=== PATIENT | female | born 1945 | race Caucasian/White ===

== ENCOUNTER → 2017-01-23 | Outpatient (CLI) | payer MEDICARE, BC | LOC: WI 13:37 | PROVIDERS: ATTEND Internal Medicine | DX: Z12.31 Encounter for screening mammogram for malignant neoplasm of breast (principal) | CPT/HCPCS: 77067; G0202 ==

== ENCOUNTER 2017-11-03 11:35 | Inpatient (IN) | payer MEDICARE, BC ==
--- NOTE | 2017-11-03 11:53 | ER Document Report ---
ED Medical Screen (RME) - General Chief Complaint: Breathing Difficulty Stated Complaint: CONGESTION Time Seen by Provider: 11/03/17 11:46 Mode of Arrival: Ambulatory Information source: Patient TRAVEL OUTSIDE OF THE [place] IN LAST 30 DAYS: No - HPI Onset: Other - 3 DAYS Onset/Duration: Gradual Quality of pain: Achy, Dull Severity: Mild Associated Symptoms: Chills, Cough (productive), Fever, Nausea, Sweating Exacerbated by: Denies Relieved by: Denies Similar symptoms previously: Yes - NOT RECENT Recently seen / treated by doctor: No - Related Data Smoking: Non-smoker Frequency of alcohol use: None Drug Abuse: None Allergies/Adverse Reactions: No Known Drug Allergies Allergy (Verified 11/03/17 11:42) Past Medical History - General Information source: Patient - Social History Cigarette use (# per day): No Chew tobacco use (# tins/day): No Frequency of alcohol use: None Drug Abuse: None Lives with: Family Family history: None - Past Medical History Cardiac Medical History: Reports: Hx Coronary Artery Disease, Hx Hypertension - ON MEDICATION Denies: Hx Heart Attack Pulmonary Medical History: Reports: Hx COPD Denies: Hx Asthma, Hx Bronchitis, Hx Pneumonia Neurological Medical History: Denies: Hx Cerebrovascular Accident, Hx Seizures Musculoskeltal Medical History: Reports Hx Arthritis - back,top right foot,neck occas Psychiatric Medical History: Reports: Hx Anxiety Past Surgical History: Reports: Hx Bowel Surgery, Hx Cholecystectomy. Denies: Hx Hysterectomy - Immunizations Hx Diphtheria, Pertussis, Tetanus Vaccination: No Review of Systems - Review of Systems Constitutional: See HPI EENT: No symptoms reported Cardiovascular: See HPI Respiratory: See HPI Gastrointestinal: See HPI Genitourinary: No symptoms reported Female Genitourinary: Post menopausal Musculoskeletal: No symptoms reported Skin: No symptoms reported Physical Exam - Vital signs Interpretation: Tachycardic. No: Hypotensive, Hypertensive, Tachypneic, Febrile - General General appearance: Appears well, Alert In distress: None - HEENT Head: Normocephalic Eyes: Normal Ears: Normal Nasal: Normal Mouth/Lips: Normal Mucous membranes: Dry Pharynx: Normal Neck: Normal, Supple - Respiratory Respiratory status: No respiratory distress Chest status: Nontender Breath sounds: Rales - FEW RML. No: Wheezing - Cardiovascular Rhythm: Regular, Tachycardia Heart sounds: Normal auscultation Murmur: No - Abdominal Inspection: Normal Distension: No distension - Extremities General upper extremity: Normal inspection General lower extremity: Normal inspection. No: Edema - Neurological Neuro grossly intact: Yes Cognition: Normal Orientation: AAOx4 - Psychological Associated symptoms: Normal affect, Normal mood - Skin Skin Temperature: Warm Skin Moisture: Dry Skin Color: Normal Skin Turgor: Loose
--- NOTE | 2017-11-03 11:54 | ER Document Report ---
ED Respiratory Problem - General Chief Complaint: Breathing Difficulty Stated Complaint: CONGESTION Time Seen by Provider: 11/03/17 11:46 Mode of Arrival: Ambulatory Information source: Patient Notes: 72-year-old frail, smoking, COPD, CAD, non CHF patient of Dr. Casillas has been having increased cough with green/yellow mucus production, chest squeezing and shortness of breath since Saturday. No fever. No vomiting or diarrhea. Did get Flu shot. Does not use oxygen at home. Pulse ox is 88% without oxygen in room. 90% with 4lpmNC. She states the last time she was like this she was admitted to the hospital. TRAVEL OUTSIDE OF THE [place] IN LAST 30 DAYS: No - Related Data Allergies/Adverse Reactions: No Known Drug Allergies Allergy (Verified 11/03/17 11:42) Past Medical History - General Information source: Patient - Social History Smoking Status: Current Every Day Smoker Cigarette use (# per day): No Chew tobacco use (# tins/day): No Frequency of alcohol use: None Drug Abuse: None Lives with: Family Family History: Reviewed & Not Pertinent Patient has suicidal ideation: No Patient has homicidal ideation: No - Past Medical History Cardiac Medical History: Reports: Hx Coronary Artery Disease, Hx Hypertension - ON MEDICATION Denies: Hx Heart Attack Pulmonary Medical History: Reports: Hx COPD Renal/ Medical History: Denies: Hx Peritoneal Dialysis Musculoskeltal Medical History: Reports Hx Arthritis - back,top right foot,neck occas Psychiatric Medical History: Reports: Hx Anxiety Past Surgical History: Reports: Hx Bowel Surgery, Hx Cholecystectomy. Denies: Hx Hysterectomy - Immunizations Hx Diphtheria, Pertussis, Tetanus Vaccination: No Hx Pneumococcal Vaccination: 09/30/14 Review of Systems - Review of Systems Constitutional: See HPI EENT: No symptoms reported Cardiovascular: See HPI, Chest pain Respiratory: See HPI, Cough, Short of breath, Sputum Gastrointestinal: No symptoms reported Genitourinary: No symptoms reported Female Genitourinary: No symptoms reported Musculoskeletal: No symptoms reported Skin: No symptoms reported Hematologic/Lymphatic: No symptoms reported Neurological/Psychological: No symptoms reported Physical Exam - Vital signs Vitals: Temp Pulse Resp BP Pulse Ox 98.9 F 119 H 16 116/64 85 L 11/03/17 11:41 11/03/17 11:41 11/03/17 11:41 11/03/17 11:41 11/03/17 11:41 Interpretation: Normal Notes: cachectic - General General appearance: Appears well, Alert Notes: cachetic - HEENT Head: Normocephalic, Atraumatic Eyes: Normal Conjunctiva: Normal Pupils: PERRL Mucous membranes: Normal Neck: Supple - Respiratory Respiratory status: No respiratory distress Chest status: Nontender Breath sounds: Productive cough, Rales - right base. No: Wheezing Chest palpation: Normal - Cardiovascular Rhythm: Tachycardia Heart sounds: Normal auscultation Murmur: No - Abdominal Inspection: Normal Distension: No distension Bowel sounds: Normal Tenderness: Nontender. No: Tender Organomegaly: No organomegaly - Back Back: Normal, Nontender - Extremities General upper extremity: Normal inspection, Nontender, Normal color, Normal ROM , Normal temperature. No: Edema General lower extremity: Normal inspection, Nontender, Normal color, Normal ROM , Normal temperature, Normal weight bearing. No: Edema, Tino's sign - Neurological Neuro grossly intact: Yes Cognition: Normal Orientation: AAOx4 Isabel Coma Scale Eye Opening: Spontaneous Sharon Coma Scale Verbal: Oriented Sharon Coma Scale Motor: Obeys Commands Isabel Coma Scale Total: 15 Speech: Normal Motor strength normal: LUE, RUE, LLE, RLE Sensory: Normal - Psychological Associated symptoms: Normal affect, Normal mood - Skin Skin Temperature: Warm Skin Moisture: Dry Skin Color: Normal Skin irregularity: negative: Rash Course - Re-evaluation Re-evalutation: 11/03/17 13:09 chest xray RLL pneumonia. Potassium is 3.1, sodium is 130 which she has had chronic hyponatremia in the past. See Dr. Camarena is admitting the patient [facility] for Dr. Weir. He wants me to give a azithromycin 500 mg IV. Originally he ordered Levaquin but she says that she may have a reaction to that. He also did not want the prednisone he originally ordered so I canceled that. The patient's pulse ox is maintaining 93% with oxygen 4 Lpm NC 11/03/17 13:55 - Vital Signs Vital signs: Temp Pulse Resp BP Pulse Ox 98.9 F 119 H 17 120/76 94 11/03/17 11:41 11/03/17 11:41 11/03/17 13:01 11/03/17 13:00 11/03/17 13:01 - Laboratory Result Diagrams: 11/03/17 12:18 11/03/17 12:18 Laboratory results interpreted by me: 11/03/17 11/03/17 11/03/17 12:18 12:18 12:18 WBC 18.1 H Hct 34.8 L Seg Neuts % (Manual) 88 H Band Neutrophils % 7 H Lymphocytes % (Manual) 4 L Monocytes % (Manual) 1 L Abs Neuts (Manual) 17.2 H VBG pH 7.49 H VBG HCO3 38.2 H Sodium 130.9 L Potassium 3.1 L Chloride 84 L Carbon Dioxide 36 H Glucose 114 H Direct Bilirubin 0.5 H AST 37 H Creatine Kinase 24 L Discharge - Discharge Clinical Impression: Hypoxia, Hypokalemia, Hyponatremia RLL pneumonia Qualifiers: Pneumonia type: due to unspecified organism Qualified Code(s): J18.1 - Lobar pneumonia, unspecified organism COPD (chronic obstructive pulmonary disease) Qualifiers: COPD type: COPD with acute lower respiratory infection Qualified Code(s): J44.0 - Chronic obstructive pulmonary disease with acute lower respiratory infection Condition: Stable Disposition: ADMITTED INPATIENT Admitting Provider: Carmella Unit Admitted: [facility]
[2017-11-03] MEDS ORDERED: CEFTRIAXONE 1 GM/D5W RTU 1 GM/50 ML RTUPB IV ONE (12:01)
[2017-11-03] MEDS ORDERED: IPRATROPIUM/ALBUTEROL 0.5-2.5 MG/3 ML AMPUL NEB ONE (12:01)
[2017-11-03] MEDS ORDERED: NORMAL SALINE 1000 ML 500 ML IV ONE (12:02)
[2017-11-03] MEDS ORDERED: CEFTRIAXONE INJ 1000 MG VIAL IV ONE (12:30)
[2017-11-03 12:36] LABS: VENOUS BLOOD BASE EXCESS 12.9 mmol/L; VENOUS BLOOD HCO3 38.2 mmol/L (20-32); VENOUS BLOOD PCO2 51.7 mmHg (35-63); VENOUS BLOOD PH 7.49 (7.30-7.42)
[2017-11-03 12:38] LABS: HEMATOCRIT 34.8 % (36.0-47.0); MEAN CORPUSCULAR HEMOGLOBIN 31.7 pg (27.0-33.4); MEAN CORPUSCULAR HGB CONC 34.4 g/dL (32.0-36.0); MEAN CORPUSCULAR VOLUME 92 fl (80-97); PLATELET COUNT 281 10^3/uL (150-450); RED BLOOD COUNT 3.77 10^6/uL (3.72-5.28); RED CELL DISTRIBUTION WIDTH 13.9 % (11.5-14.0); WHITE BLOOD COUNT 18.1 10^3/uL (4.0-10.5)
--- NOTE | 2017-11-03 12:47 | RADIOLOGY REPORT (SQ) ---
EXAM DESCRIPTION: CHEST SINGLE VIEW COMPLETED DATE/TIME: 11/03/2017 12:26 pm REASON FOR STUDY: COUGH, FEVER COMPARISON: Chest films 01/11/2016, 10/01/2015, 07/30/2015 EXAM PARAMETERS: NUMBER OF VIEWS: One view. TECHNIQUE: Single frontal radiographic view of the chest acquired. RADIATION DOSE: NA LIMITATIONS: None. FINDINGS: LUNGS AND PLEURA: Patchy airspace disease right lower lobe worrisome for pneumonia. Left lung clear. No pleural effusions or pneumothorax. MEDIASTINUM AND HILAR STRUCTURES: No masses. Contour normal. HEART AND VASCULAR STRUCTURES: Heart normal in size. Normal vasculature. BONES: No acute findings. HARDWARE: None in the chest. OTHER: No other significant finding. IMPRESSION: Right lower lobe airspace disease worrisome for pneumonia. No pleural effusion. TECHNICAL DOCUMENTATION: JOB ID: [id number] [employer]- All Rights Reserved
[2017-11-03 12:55] LABS: ALANINE AMINOTRANSFERASE 29 U/L (9-52); ALBUMIN 3.8 g/dL (3.5-5.0); ALKALINE PHOSPHATASE 87 U/L (38-126); ANION GAP 11 (5-19); ASPARTATE AMINO TRANSFERASE 37 U/L (14-36); BILIRUBIN,DIRECT 0.5 mg/dL (0.0-0.4); BILIRUBIN,TOTAL 0.6 mg/dL (0.2-1.3); BLOOD UREA NITROGEN 15 mg/dL (7-20); CALCIUM 9.9 mg/dL (8.4-10.2); CARBON DIOXIDE 36 mmol/L (22-30); CHLORIDE 84 mmol/L (98-107); CREATINE KINASE 24 U/L (30-135); GLUCOSE 114 mg/dL (75-110); POTASSIUM 3.1 mmol/L (3.6-5.0); SODIUM 130.9 mmol/L (137-145); TOTAL PROTEIN 6.8 g/dL (6.3-8.2)
[2017-11-03 12:57] LABS: ABSOLUTE LYMPHOCYTES# (MANUAL) 0.7 10^3/uL (0.5-4.7); ABSOLUTE MONOCYTES # (MANUAL) 0.2 10^3/uL (0.1-1.4); ABSOLUTE NEUTROPHILS# (MANUAL) 17.2 10^3/uL (1.7-8.2); BAND NEUTROPHILS % (MANUAL) 7 % (3-5); BASOPHILS % (MANUAL) 0 % (0-2); EOSINOPHILS % (MANUAL) 0 % (0-6); LYMPHOCYTES % (MANUAL) 4 % (13-45); MONOCYTES % (MANUAL) 1 % (3-13); SEGMENTED NEUTROPHILS % (MAN) 88 % (42-78); TOTAL CELLS COUNTED 100
[2017-11-03 12:59] LABS: HYPOCHROMASIA SLIGHT; PLATELET COMMENT ADEQUATE; TOXIC GRANULATION SLIGHT
[2017-11-03] MEDS ORDERED: PREDNISONE 20 MG TABLET PO ONE (13:02)
[2017-11-03] MEDS ORDERED: POTASSIUM CHLORIDE 20 MEQ/15 ML UDCUP PO ONE (13:04)
[2017-11-03 13:07] LABS: CREATINE KINASE MB < 0.22 ng/mL (<4.55); TROPONIN I < 0.012 ng/mL
[2017-11-03] MEDS ORDERED: NORMAL SALINE 1000 ML 1,000 ML IV ONE (13:07)
[2017-11-03] MEDS ORDERED: AZITHROMYCIN INJ 500 MG VIAL IV ONE (13:08)
[2017-11-03] MEDS ORDERED: NORMAL SALINE 1000 ML 1,000 ML IV PRN (13:14)
[2017-11-03] MEDS ORDERED: ACETAMINOPHEN 325 MG TABLET PO PRN (13:14)
[2017-11-03] MEDS ORDERED: IPRATROPIUM/ALBUTEROL 0.5-2.5 MG/3 ML AMPUL NEB PRN (13:14)
[2017-11-03] MEDS ORDERED: GUAIFENESIN SYRP 200 MG/10 ML UDC PO PRN (13:14)
[2017-11-03] MEDS ORDERED: CYCLOBENZAPRINE HCL 10 MG TABLET PO PRN (13:16)
[2017-11-03] MEDS ORDERED: LORAZEPAM 1 MG TABLET PO PRN ×2 (13:16→19:00)
[2017-11-03 13:28] LABS: A TYPE INFLUENZA AG NEGATIVE (NEGATIVE); B INFLUENZA AG NEGATIVE (NEGATIVE)
[2017-11-03] MEDS ORDERED: HYDROCODONE/ACETAMINOPHEN 10-325 MG TABLET PO SCH (13:30)
[2017-11-03 13:59] LABS: APPEARANCE,URINE CLOUDY; BILIRUBIN,URINE NEGATIVE (NEGATIVE); COLOR,URINE DARK YELLOW; GLUCOSE, URINE NEGATIVE (NEGATIVE); KETONES,URINE NEGATIVE (NEGATIVE); LEUKOCYTE ESTERASE,URINE TRACE (NEGATIVE); NITRITE,URINE POSITIVE (NEGATIVE); PROTEIN,URINE 30 mg/dL (NEGATIVE); URINE SPECIFIC GRAVITY 1.021
[2017-11-03] MEDS ORDERED: LEVOFLOXACIN 750 MG/D5W RTU 750 MG/150 ML RTUPB IV SCH (14:00)
--- NOTE | 2017-11-03 14:58 | HISTORY AND PHYSICAL E ---
History and Physical NAME: MAYURI BAILEY : 1945 AGE: 72Y ADMITTED: 11/03/2017 ROOM: ED03 CHIEF COMPLAINT: Short of breath. HISTORY OF PRESENT ILLNESS: This is a 72-year-old female patient of Dr. Ryan with a history of chronic smoking, COPD, coronary artery disease, came to the emergency department complaining of a cough with green-yellow mucus production since last Saturday with shortness of breath since last Saturday. Patient denied any fevers. No vomiting. No diarrhea. Patient did not get a flu shot this year. Patient usually does not require oxygen, but pulse ox is 88% which goes up on 2 L nasal cannula to 90% plus. Patient's chest x-ray is consistent with pneumonia with elevated white count. When I see the patient in the ER, patient is feeling a little bit better but still having a little shortness of breath. Patient denied any chest pain to me. Patient denied any nausea. No vomiting. Patient is at this point given Rocephin and Zithromax. Patient claims that she has some allergy to levofloxacin, not sure, but was given p.o. medication by Dr. Ryan in the past and unable to tolerate that, so we tried the patient on these other 2 medications. Patient's family is at the bedside. PAST MEDICAL HISTORY: History of COPD with chronic smoking, history of hypertension, history of chronic pain with chronic pain medications. Currently sees *------* pain management. History of hyperlipidemia. History of anxiety disorder. Patient also has a history of cardiac arrhythmia but no cardiac stents and no heart failure. PAST SURGICAL HISTORY: Bowel surgery, cholecystectomy, and hysterectomy. REVIEW OF SYSTEMS: As above. All other 14 systems negative. PHYSICAL EXAMINATION: VITAL SIGNS: Blood pressure was 116/64. Temperature is 98.9. Pulse was 60. O2 sat is 85% on room air, currently 95% on 2 L nasal cannula. GENERAL: Patient is alert, awake, oriented, very thin. No acute distress. HEAD AND NECK: Normocephalic. PERRL. LUNGS: No wheezing. No rales. No rhonchi. HEART: S1 and S2 are present. ABDOMEN: Soft. Bowel sounds present. EXTREMITIES: No edema. NEURO: No focal weakness is seen. DIAGNOSTIC TEST RESULTS: Patient's chest x-ray is right lower lobe air space disease. WBC is 18.1. Hemoglobin is 12.0. Platelets are 281. Segmented is 88 and bands are 7. The pH was 7.49, pCO2 was 51. Patient's chemistry: Sodium is 130. Potassium is 3.1. BUN is 15. Creatinine 0.58. Lactic acid is 2.1. Cardiac enzymes x1 are negative. ASSESSMENT AND PLAN: 1. RIGHT LOWER LOBE PNEUMONIA. 2. SHORTNESS OF BREATH DUE TO THE ABOVE CONDITION. 3. COPD WITH ACUTE EXACERBATION. 4. HYPERTENSION. 5. CHRONIC HYPONATREMIA. 6. HYPERLIPIDEMIA. 7. CHRONIC SMOKER. 8. CORONARY ARTERY DISEASE. The plan is to admit the patient in the IMCU, start the patient on IV antibiotics, respiratory treatments. Will get urine sodium. *------* most likely with this chronic hyponatremia. Possible underlying SIADH. Will continue to monitor, give her some normal saline, and continue to monitor the patient. Discussed with the patient and family about all the test reports in the emergency department. More than 35 minutes spent examining the patient. DICTATING PHYSICIAN: LIDIA OROZCO M.D. [id number] PHY#: [id number] ID: [id number] JOB#: [id number] ACCT: [id number] cc:VEDA RYAN M.D. >
[2017-11-03] MEDS: HYDROCODONE/ACETAMINOPHEN 10-325 MG TABLET PO PRN ×2 (15:06→21:48)
--- NOTE | 2017-11-03 16:11 | EKG REPORT ---
SEVERITY:- ABNORMAL ECG - SINUS TACHYCARDIA MULTIPLE ATRIAL PREMATURE COMPLEXES BORDERLINE RIGHT AXIS DEVIATION BORDERLINE T ABNORMALITIES, INFERIOR-LATERAL LEADS : Confirmed by: Harvey Martinez MD 03-Nov-2017 16:10:14
[2017-11-03 17:27] LABS: OSMOLALITY,URINE 627 mOsm/kg (300-900)
[2017-11-03 17:50] LABS: URINE SODIUM 48 mmol/L (30-90)
[2017-11-03] MEDS ORDERED: (PENDING PHARMACY ID) (Potassium Chloride [Potassium Chloride] 10 MEQ) PO SCH (18:00)
[2017-11-03] MEDS: LANSOPRAZOLE 15 MG TAB.RAP.DR PO SCH (18:03)
[2017-11-03] MEDS: POTASSIUM CHLORIDE 10 MEQ TABLET.SA PO SCH (18:05)
[2017-11-03 19:01] LABS: CREATINE KINASE MB < 0.22 ng/mL (<4.55); TROPONIN I < 0.012 ng/mL
[2017-11-03] MEDS: GUAIFENESIN 600 MG TABLET.SA PO SCH (21:48)
[2017-11-03] MEDS: SIMVASTATIN 40 MG TABLET PO SCH (21:49)
[2017-11-03] MEDS: ASPIRIN 81 MG TABLET, ENT COATED PO SCH (21:49)
[2017-11-04 01:02] LABS: CREATINE KINASE MB < 0.22 ng/mL (<4.55); TROPONIN I < 0.012 ng/mL
[2017-11-04] MEDS: HYDROCODONE/ACETAMINOPHEN 10-325 MG TABLET PO PRN ×4 (04:14→23:01)
[2017-11-04 06:41] LABS: ABSOLUTE BASOPHILS # (AUTO) 0.1 10^3/uL (0.0-0.2); ABSOLUTE LYMPHOCYTES (AUTO) 0.9 10^3/uL (0.5-4.7); ABSOLUTE MONOCYTES (AUTO) 0.8 10^3/uL (0.1-1.4); ABSOLUTE NEUT (AUTO) 11.8 10^3/uL (1.7-8.2); BASOPHILS % (AUTO) 0.4 % (0-2); EOSINOPHILS % (AUTO) 0.1 % (0-6); HEMATOCRIT 30.8 % (36.0-47.0); HEMOGLOBIN 10.6 g/dL (12.0-15.5); LYMPHOCYTES % (AUTO) 6.4 % (13-45); MEAN CORPUSCULAR HEMOGLOBIN 31.6 pg (27.0-33.4); MEAN CORPUSCULAR HGB CONC 34.5 g/dL (32.0-36.0); MEAN CORPUSCULAR VOLUME 92 fl (80-97); MONOCYTES % (AUTO) 5.8 % (3-13); PLATELET COUNT 263 10^3/uL (150-450); RED BLOOD COUNT 3.36 10^6/uL (3.72-5.28); SEGMENTED NEUTROPHILS % (AUTO) 87.3 % (42-78); TOTAL CELLS COUNTED % (AUTO) 100 %; WHITE BLOOD COUNT 13.5 10^3/uL (4.0-10.5)
[2017-11-04 06:49] LABS: ALANINE AMINOTRANSFERASE 28 U/L (9-52); ALBUMIN 2.8 g/dL (3.5-5.0); ALKALINE PHOSPHATASE 71 U/L (38-126); ANION GAP 8 (5-19); ASPARTATE AMINO TRANSFERASE 22 U/L (14-36); BILIRUBIN,DIRECT 0.4 mg/dL (0.0-0.4); BILIRUBIN,TOTAL 0.4 mg/dL (0.2-1.3); BLOOD UREA NITROGEN 16 mg/dL (7-20); CALCIUM 9.3 mg/dL (8.4-10.2); CARBON DIOXIDE 34 mmol/L (22-30); CHLORIDE 87 mmol/L (98-107); GLUCOSE 97 mg/dL (75-110); POTASSIUM 3.1 mmol/L (3.6-5.0); SODIUM 128.6 mmol/L (137-145); TOTAL PROTEIN 5.2 g/dL (6.3-8.2)
[2017-11-04 06:51] LABS: CREATINE KINASE < 20 U/L (30-135)
[2017-11-04 07:02] LABS: CREATINE KINASE MB < 0.22 ng/mL (<4.55); TROPONIN I < 0.012 ng/mL
[2017-11-04] MEDS ORDERED: METOPROLOL SUCCINATE 50 MG TAB.SR.24H PO SCH (10:00)
[2017-11-04] MEDS ORDERED: (PENDING PHARMACY ID) (Metoprolol Succinate [Metoprolol Succinate] 100 MG) PO SCH (10:00)
[2017-11-04] MEDS ORDERED: CEFTRIAXONE 1 GM/D5W RTU 1 GM/50 ML RTUPB IV SCH (10:00)
[2017-11-04] MEDS ORDERED: (PENDING PHARMACY ID) (Valsartan [Valsartan] 320 MG) PO SCH (10:00)
[2017-11-04] MEDS: LANSOPRAZOLE 15 MG TAB.RAP.DR PO SCH ×2 (10:01→17:57)
[2017-11-04] MEDS: GUAIFENESIN 600 MG TABLET.SA PO SCH ×2 (10:01→21:28)
[2017-11-04] MEDS: POTASSIUM CHLORIDE 10 MEQ TABLET.SA PO SCH ×2 (10:02→17:57)
[2017-11-04] MEDS: VALSARTAN 160 MG TABLET PO SCH (10:03)
[2017-11-04] MEDS: ISOSORBIDE MONONITRATE 30 MG TAB.ER.24H PO SCH (10:04)
[2017-11-04] MEDS: AMLODIPINE BESYLATE 10 MG TABLET PO SCH (10:04)
[2017-11-04] MEDS: ENOXAPARIN SODIUM INJ 40 MG/0.4 ML DISP.SYRIN SUBCUT SCH (10:05)
[2017-11-04] MEDS: AZITHROMYCIN 500 MG in DEXTROSE 5%-WATER 250 ML IV SCH (10:07)
[2017-11-04] MEDS: TIOTROPIUM BROMIDE DPI 5 CAP/KIT (18 MCG/CAP) IH SCH (10:07)
[2017-11-04] MEDS ORDERED: CYCLOBENZAPRINE HCL 10 MG TABLET PO PRN (10:55)
[2017-11-04] MEDS: CEFTRIAXONE SODIUM 1,000 MG in NORMAL SALINE 50 ML IV SCH (13:52)
[2017-11-04] MEDS: METOPROLOL SUCCINATE 50 MG TAB.SR.24H PO SCH (17:58)
[2017-11-04] MEDS: SIMVASTATIN 40 MG TABLET PO SCH (21:28)
[2017-11-04] MEDS: ASPIRIN 81 MG TABLET, ENT COATED PO SCH (21:28)
--- NOTE | 2017-11-04 21:33 | RADIOLOGY REPORT (SQ) ---
EXAM DESCRIPTION: CT CHEST WITHOUT COMPLETED DATE/TIME: 11/04/2017 9:05 pm REASON FOR STUDY: pneumonia COMPARISON: 2013. Radiographs from yesterday. TECHNIQUE: CT scan performed of the chest without intravenous contrast. Images reviewed with lung, soft tissue and bone windows. Reconstructed coronal and sagittal MPR images reviewed. All images st ored on PACS. All CT scanners at this facility use dose modulation, iterative reconstruction, and/or weight based d osing when appropriate to reduce radiation dose to as low as reasonably achievable (ALARA). [facility]: Dose Right [facility]: CareDose [facility]: Dose Right [facility]: Teradose 4D [facility]: Smart Power Fingerprinting RADIATION DOSE: CT Rad equipment meets quality standard of care and radiation dose reduction techniq ues were employed. CTDIvol: 4.8 mGy. DLP: 167 mGy-cm. mGy. LIMITATIONS: No technical limitations. FINDINGS: LUNGS AND PLEURA: Bilateral lower lobe areas of consolidation with associated small effusi ons. Upper lobes are clear allowing for mild emphysema. Mild areas of scarring. HILAR AND MEDIASTINAL STRUCTURES: Shotty mediastinal nodes. No bulky adenopathy. Mild debris in the esophagus. No significant hiatal hernia. HEART AND VASCULAR STRUCTURES: Dense coronary calcification. No pericardial effusion. Atherosclerot ic plaque, particularly transverse and descending. Ectatic ascending aorta measuring close to 3.8 cm . No focal aneurysm. UPPER ABDOMEN: No significant findings. Limited exam. THYROID AND OTHER SOFT TISSUES: No masses. No adenopathy. BONES: Osteopenic. HARDWARE: None in the chest. OTHER: No other significant findings. IMPRESSION: 1. Bilateral presumed lower lobe pneumonia with parapneumonic effusions. Superimposed o n COPD. TECHNICAL DOCUMENTATION: JOB ID: [id number] Quality ID # [id number]: Final reports with documentation of one or more dose reduction techniques (e.g., Au tomated exposure control, adjustment of the mA and/or kV according to patient size, use of iterative reconstruction technique) 2010 [employer]- All Rights Reserved
--- NOTE | 2017-11-04 22:17 | PDOC PROGRESS REPORT ---
Subjective Progress Note for:: 11/04/17 Subjective:: Patient is a recalcitrant smoker, was admitted yesterday with pneumonia, she continued to smoke despite severe COPD, CT chest was done today, confirm bilateral pneumonia with emphysema associated parapneumonic effusion Reason For Visit: PNEUMONIA Physical Exam Vital Signs: Temp Pulse Resp BP Pulse Ox 98.8 F 73 18 103/58 L 98 11/04/17 20:31 11/04/17 20:31 11/04/17 20:31 11/04/17 20:31 11/04/17 20:31 Intake & Output 11/03/17 11/04/17 11/05/17 06:59 06:59 06:59 Intake Total 200 Balance 200 Weight 43.6 kg General appearance: PRESENT: mild distress Eye exam: PRESENT: PERRLA Respiratory exam: PRESENT: decreased breath sounds, wheezes Cardiovascular exam: PRESENT: +S1, +S2 GI/Abdominal exam: PRESENT: soft Neurological exam: PRESENT: alert Results Laboratory Results: 11/04/17 06:30 11/04/17 06:30 11/04/17 11/04/17 06:30 06:30 WBC 13.5 H RBC 3.36 L Hgb 10.6 L Hct 30.8 L MCV 92 MCH 31.6 MCHC 34.5 RDW 14.0 Plt Count 263 Seg Neutrophils % 87.3 H Lymphocytes % 6.4 L Monocytes % 5.8 Eosinophils % 0.1 Basophils % 0.4 Absolute Neutrophils 11.8 H Absolute Lymphocytes 0.9 Absolute Monocytes 0.8 Absolute Eosinophils 0.0 Absolute Basophils 0.1 Sodium 128.6 L Potassium 3.1 L Chloride 87 L Carbon Dioxide 34 H Anion Gap 8 BUN 16 Creatinine 0.54 Est GFR ( Amer) > 60 Est GFR (Non-Af Amer) > 60 Glucose 97 Calcium 9.3 Total Bilirubin 0.4 AST 22 ALT 28 Alkaline Phosphatase 71 Total Protein 5.2 L Albumin 2.8 L 11/03/17 11/03/17 11/04/17 18:10 18:10 00:10 Creatine Kinase < 20 L < 20 L CK-MB (CK-2) < 0.22 Troponin I < 0.012 11/04/17 11/04/17 11/04/17 00:10 06:30 06:30 Creatine Kinase < 20 L CK-MB (CK-2) < 0.22 < 0.22 Troponin I < 0.012 < 0.012 Impressions: Chest X-Ray 11/03/17 11:53 IMPRESSION: Right lower lobe airspace disease worrisome for pneumonia. No pleural effusion. Chest CT 11/04/17 00:00 IMPRESSION: 1. Bilateral presumed lower lobe pneumonia with parapneumonic effusions. Superimposed on COPD. Assessment & Plan - Diagnosis (1) Bilateral pneumonia Qualifiers: Pneumonia type: due to unspecified organism Lung location: lower lobe of lung Qualified Code(s): J18.9 - Pneumonia, unspecified organism Is this a current diagnosis for this admission?: Yes Plan: Continue IV antibiotic, azithromycin and ceftriaxone (2) SIADH (syndrome of inappropriate ADH production) Is this a current diagnosis for this admission?: Yes Plan: SIADH most likely related to pneumonia (3) Hypokalemia Is this a current diagnosis for this admission?: Yes Plan: Replace potassium (4) Acute hypoxemic respiratory failure Is this a current diagnosis for this admission?: Yes Plan: This is secondary to pneumonia and COPD continue oxygen through nasal cannula
[2017-11-04 22:25] LABS: ARTERIAL BLOOD BASE EXCESS 7.8 mmol/L; ARTERIAL BLOOD H2CO3 1.52 mmol/L (1.05-1.35); ARTERIAL BLOOD HCO3 33.1 mmol/L (20-26); ARTERIAL BLOOD O2 SATURATION 77.2 % (94-98); ARTERIAL BLOOD PCO2 50.5 mmHg (35-45); ARTERIAL BLOOD PH 7.44 (7.35-7.45); ARTERIAL BLOOD TOTAL CO2 34.7 mmol/L (21-25)
[2017-11-04 22:26] LABS: ARTERIAL BLOOD FIO2 5L
[2017-11-04] MEDS: POTASSI CL 40 MEQ/NS 1L 1,000 ML IV PRN (23:01)
[2017-11-05] MEDS: LANSOPRAZOLE 15 MG TAB.RAP.DR PO SCH ×2 (05:00→17:20)
[2017-11-05] MEDS: HYDROCODONE/ACETAMINOPHEN 10-325 MG TABLET PO PRN ×4 (05:00→23:34)
[2017-11-05 05:11] LABS: ABSOLUTE LYMPHOCYTES (AUTO) 1.8 10^3/uL (0.5-4.7); ABSOLUTE MONOCYTES (AUTO) 0.6 10^3/uL (0.1-1.4); ABSOLUTE NEUT (AUTO) 7.7 10^3/uL (1.7-8.2); BASOPHILS % (AUTO) 0.3 % (0-2); EOSINOPHILS % (AUTO) 0.4 % (0-6); HEMATOCRIT 28.5 % (36.0-47.0); HEMOGLOBIN 9.9 g/dL (12.0-15.5); LYMPHOCYTES % (AUTO) 17.4 % (13-45); MEAN CORPUSCULAR HEMOGLOBIN 31.7 pg (27.0-33.4); MEAN CORPUSCULAR HGB CONC 34.5 g/dL (32.0-36.0); MEAN CORPUSCULAR VOLUME 92 fl (80-97); MONOCYTES % (AUTO) 6.2 % (3-13); PLATELET COUNT 303 10^3/uL (150-450); RED BLOOD COUNT 3.11 10^6/uL (3.72-5.28); RED CELL DISTRIBUTION WIDTH 14.2 % (11.5-14.0); SEGMENTED NEUTROPHILS % (AUTO) 75.7 % (42-78); TOTAL CELLS COUNTED % (AUTO) 100 %; WHITE BLOOD COUNT 10.1 10^3/uL (4.0-10.5)
[2017-11-05 05:40] LABS: ALANINE AMINOTRANSFERASE 27 U/L (9-52); ALBUMIN 2.6 g/dL (3.5-5.0); ALKALINE PHOSPHATASE 69 U/L (38-126); ASPARTATE AMINO TRANSFERASE 23 U/L (14-36); BILIRUBIN,DIRECT 0.2 mg/dL (0.0-0.4); BILIRUBIN,TOTAL 0.2 mg/dL (0.2-1.3); BLOOD UREA NITROGEN 14 mg/dL (7-20); CALCIUM 9.1 mg/dL (8.4-10.2); GLUCOSE 94 mg/dL (75-110); TOTAL PROTEIN 4.9 g/dL (6.3-8.2)
[2017-11-05 05:58] LABS: ANION GAP 4 (5-19); CARBON DIOXIDE 34 mmol/L (22-30); CHLORIDE 92 mmol/L (98-107); POTASSIUM 3.5 mmol/L (3.6-5.0)
[2017-11-05 05:59] LABS: SODIUM 129.8 mmol/L (137-145)
[2017-11-05] MEDS: CEFTRIAXONE SODIUM 1,000 MG in NORMAL SALINE 50 ML IV SCH (09:38)
[2017-11-05] MEDS: AMLODIPINE BESYLATE 10 MG TABLET PO SCH (09:39)
[2017-11-05] MEDS: POTASSIUM CHLORIDE 10 MEQ TABLET.SA PO SCH ×2 (09:39→17:21)
[2017-11-05] MEDS: GUAIFENESIN 600 MG TABLET.SA PO SCH ×2 (09:39→21:46)
[2017-11-05] MEDS: VALSARTAN 160 MG TABLET PO SCH (09:39)
[2017-11-05] MEDS: ISOSORBIDE MONONITRATE 30 MG TAB.ER.24H PO SCH (09:40)
[2017-11-05] MEDS: ENOXAPARIN SODIUM INJ 40 MG/0.4 ML DISP.SYRIN SUBCUT SCH (09:42)
[2017-11-05] MEDS: AZITHROMYCIN 500 MG in DEXTROSE 5%-WATER 250 ML IV SCH (10:27)
[2017-11-05] MEDS: TIOTROPIUM BROMIDE DPI 5 CAP/KIT (18 MCG/CAP) IH SCH (11:39)
[2017-11-05] MEDS: METOPROLOL SUCCINATE 50 MG TAB.SR.24H PO SCH (17:20)
--- NOTE | 2017-11-05 20:54 | PDOC PROGRESS REPORT ---
Subjective Progress Note for:: 11/05/17 Subjective:: Patient was admitted for the management of pneumonia, she is alert oriented Reason For Visit: PNEUMONIA Physical Exam Vital Signs: Temp Pulse Resp BP Pulse Ox 97.8 F 62 20 103/64 95 11/05/17 16:28 11/05/17 19:00 11/05/17 16:28 11/05/17 16:28 11/05/17 16:28 Intake & Output 11/04/17 11/05/17 11/06/17 06:59 06:59 06:59 Intake Total 1337 2068 Output Total 600 Balance 1337 1468 Weight 43.6 kg 48 kg General appearance: PRESENT: no acute distress Eye exam: PRESENT: PERRLA Respiratory exam: PRESENT: clear to auscultation eze Cardiovascular exam: PRESENT: +S1, +S2 Neurological exam: PRESENT: alert Results Laboratory Results: 11/05/17 04:46 11/05/17 04:46 11/04/17 11/05/17 11/05/17 19:45 04:46 04:46 WBC 10.1 RBC 3.11 L Hgb 9.9 L Hct 28.5 L MCV 92 MCH 31.7 MCHC 34.5 RDW 14.2 H Plt Count 303 Seg Neutrophils % 75.7 Lymphocytes % 17.4 Monocytes % 6.2 Eosinophils % 0.4 Basophils % 0.3 Absolute Neutrophils 7.7 Absolute Lymphocytes 1.8 Absolute Monocytes 0.6 Absolute Eosinophils 0.0 Absolute Basophils 0.0 Carbonic Acid 1.52 H HCO3/H2CO3 Ratio 21:1 ABG pH 7.44 ABG pCO2 50.5 H ABG pO2 41.0 L ABG HCO3 33.1 H ABG O2 Saturation 77.2 L ABG Base Excess 7.8 FiO2 5L Sodium 129.8 L Potassium 3.5 L Chloride 92 L Carbon Dioxide 34 H Anion Gap 4 L BUN 14 Creatinine 0.53 Est GFR ( Amer) > 60 Est GFR (Non-Af Amer) > 60 Glucose 94 Calcium 9.1 Total Bilirubin 0.2 AST 23 ALT 27 Alkaline Phosphatase 69 Total Protein 4.9 L Albumin 2.6 L 11/03/17 11/03/17 11/04/17 18:10 18:10 00:10 Creatine Kinase < 20 L < 20 L CK-MB (CK-2) < 0.22 Troponin I < 0.012 11/04/17 11/04/17 11/04/17 00:10 06:30 06:30 Creatine Kinase < 20 L CK-MB (CK-2) < 0.22 < 0.22 Troponin I < 0.012 < 0.012 Impressions: Chest X-Ray 11/03/17 11:53 IMPRESSION: Right lower lobe airspace disease worrisome for pneumonia. No pleural effusion. Chest CT 11/04/17 00:00 IMPRESSION: 1. Bilateral presumed lower lobe pneumonia with parapneumonic effusions. Superimposed on COPD. Assessment & Plan - Diagnosis (1) Bilateral pneumonia Qualifiers: Pneumonia type: due to unspecified organism Lung location: lower lobe of lung Qualified Code(s): J18.9 - Pneumonia, unspecified organism Is this a current diagnosis for this admission?: Yes (2) SIADH (syndrome of inappropriate ADH production) Is this a current diagnosis for this admission?: Yes (3) Hypokalemia Is this a current diagnosis for this admission?: Yes (4) Acute hypoxemic respiratory failure Is this a current diagnosis for this admission?: Yes
[2017-11-05] MEDS: ASPIRIN 81 MG TABLET, ENT COATED PO SCH (21:46)
[2017-11-05] MEDS: SIMVASTATIN 40 MG TABLET PO SCH (21:46)
[2017-11-05] MEDS: POTASSI CL 40 MEQ/NS 1L 1,000 ML IV PRN (23:34)
[2017-11-06 00:36] LABS: UR PRO/CREAT RATIO RESULT 0.7 mg/mg (0.0-0.2); URINE CREATININE 20.8 mg/dL (15-278); URINE PROTEIN 13.6 mg/dL (<12)
[2017-11-06] MEDS: HYDROCODONE/ACETAMINOPHEN 10-325 MG TABLET PO PRN ×2 (05:37→11:22)
[2017-11-06] MEDS: LANSOPRAZOLE 15 MG TAB.RAP.DR PO SCH ×2 (05:37→16:11)
[2017-11-06 07:02] LABS: HEMATOCRIT 31.8 % (36.0-47.0); HEMOGLOBIN 10.8 g/dL (12.0-15.5); MEAN CORPUSCULAR HEMOGLOBIN 31.2 pg (27.0-33.4); MEAN CORPUSCULAR VOLUME 92 fl (80-97); PLATELET COUNT 385 10^3/uL (150-450); RED BLOOD COUNT 3.46 10^6/uL (3.72-5.28); RED CELL DISTRIBUTION WIDTH 14.6 % (11.5-14.0); WHITE BLOOD COUNT 6.7 10^3/uL (4.0-10.5)
[2017-11-06 07:07] LABS: ALANINE AMINOTRANSFERASE 28 U/L (9-52); ALKALINE PHOSPHATASE 78 U/L (38-126); ANION GAP 8 (5-19); ASPARTATE AMINO TRANSFERASE 34 U/L (14-36); BILIRUBIN,DIRECT 0.1 mg/dL (0.0-0.4); BILIRUBIN,TOTAL 0.1 mg/dL (0.2-1.3); BLOOD UREA NITROGEN 9 mg/dL (7-20); CALCIUM 9.6 mg/dL (8.4-10.2); CARBON DIOXIDE 31 mmol/L (22-30); CHLORIDE 96 mmol/L (98-107); GLUCOSE 85 mg/dL (75-110); POTASSIUM 4.3 mmol/L (3.6-5.0); SODIUM 135.4 mmol/L (137-145); TOTAL PROTEIN 5.4 g/dL (6.3-8.2)
[2017-11-06 07:53] LABS: ABSOLUTE LYMPHOCYTES# (MANUAL) 2.1 10^3/uL (0.5-4.7); ABSOLUTE MONOCYTES # (MANUAL) 0.3 10^3/uL (0.1-1.4); ABSOLUTE NEUTROPHILS# (MANUAL) 4.4 10^3/uL (1.7-8.2); BAND NEUTROPHILS % (MANUAL) 1 % (3-5); BASOPHILS % (MANUAL) 0 % (0-2); EOSINOPHILS % (MANUAL) 0 % (0-6); LYMPHOCYTES % (MANUAL) 30 % (13-45); METAMYELOCYTES % (MANUAL) 1 % (0); MONOCYTES % (MANUAL) 4 % (3-13); SEGMENTED NEUTROPHILS % (MAN) 63 % (42-78); TOTAL CELLS COUNTED 100; TOXIC GRANULATION 2+
[2017-11-06 07:54] LABS: HYPOCHROMASIA SLIGHT; PLATELET CLUMPS PRESENT; POLYCHROMASIA SLIGHT
[2017-11-06] MEDS: CEFTRIAXONE SODIUM 1,000 MG in NORMAL SALINE 50 ML IV SCH (09:57)
[2017-11-06] MEDS: VALSARTAN 160 MG TABLET PO SCH (09:59)
[2017-11-06] MEDS: POTASSIUM CHLORIDE 10 MEQ TABLET.SA PO SCH (09:59)
[2017-11-06] MEDS: TIOTROPIUM BROMIDE DPI 5 CAP/KIT (18 MCG/CAP) IH SCH (10:00)
[2017-11-06] MEDS: AMLODIPINE BESYLATE 10 MG TABLET PO SCH (10:00)
[2017-11-06] MEDS: GUAIFENESIN 600 MG TABLET.SA PO SCH (10:00)
[2017-11-06] MEDS: ISOSORBIDE MONONITRATE 30 MG TAB.ER.24H PO SCH (10:00)
[2017-11-06] MEDS: ENOXAPARIN SODIUM INJ 40 MG/0.4 ML DISP.SYRIN SUBCUT SCH (10:02)
[2017-11-06] MEDS: AZITHROMYCIN 500 MG in DEXTROSE 5%-WATER 250 ML IV SCH (11:05)
--- NOTE | 2017-11-06 15:49 | PDOC DISCHARGE SUMMARY ---
General - Admit/Disc Date/PCP Admission Date/Primary Care Provider: 11/03/17 13:13 VEDA RYAN MD Discharge Date: 11/06/17 - Discharge Diagnosis (1) Bilateral pneumonia Is this a current diagnosis for this admission?: Yes (2) SIADH (syndrome of inappropriate ADH production) Is this a current diagnosis for this admission?: Yes (3) Hypokalemia Is this a current diagnosis for this admission?: Yes (4) Acute hypoxemic respiratory failure Is this a current diagnosis for this admission?: Yes - Additional Information Resuscitation Status: Full Code Prescriptions: RX: Azithromycin [Zithromax 250 mg Tablet] 500 mg PO DAILY #14 tablet Home Medications: RX: Amlodipine Besylate [Norvasc 10 mg Tablet] 10 mg PO DAILY 11/04/17 RX: Hydrochlorothiazide [Hydrodiuril 12.5 mg Capsule] 12.5 mg PO DAILY 11/04/17 RX: Hydrocodone/Acetaminophen [Hydrocodone-Acetamin 10-325 mg] 1 tab PO Q6HP PRN 11/04/17 RX: Isosorbide Mononitrate [Isosorbide Mononitrate ER] 30 mg PO DAILY 11/04/17 RX: Metoprolol Succinate [Toprol XL 100 mg Tablet] 100 mg PO QPM 11/04/17 RX: Potassium Chloride [Klor-Con 10 Meq Tablet.sa] 10 meq PO DAILY 11/04/17 RX: Simvastatin [Zocor 40 mg Tablet] 40 mg PO QHS 11/04/17 RX: Valsartan [Diovan] 320 mg PO DAILY 11/04/17 RX: Azithromycin [Zithromax 250 mg Tablet] 500 mg PO DAILY #14 tablet 11/06/17 History of Present Illness History of Present Illness: MAYURI BAILEY is a 72 year old female, she has a history of chronic obstructive pulmonary disease, she could emergency room for evaluation of shortness of breath, fever, cough productive of sputum ,chest x-ray was done she was found to have pneumonia. Hospital Course Hospital Course: She was admitted for the management of pneumonia, CT chest was done it showed bilateral pneumonia involving the lower lobes. She was treated with IV antibiotic cefepime and azithromycin. She has a background COPD, hyponatremia due to SIADH. She improved with treatment, she be discharged him today. The hypoxemia was treated with nasal cannula oxygen Physical Exam Vital Signs: Temp Pulse Resp BP Pulse Ox 97.4 F 66 12 110/71 97 11/06/17 12:12 11/06/17 14:00 11/06/17 12:12 11/06/17 12:12 11/06/17 12:12 Intake & Output 11/05/17 11/06/17 11/07/17 06:59 06:59 06:59 Intake Total 1337 3430 Output Total 1600 Balance 1337 1830 Weight 48 kg 49 kg General appearance: PRESENT: no acute distress, well-developed, well-nourished Head exam: PRESENT: atraumatic, normocephalic Eye exam: PRESENT: conjunctiva pink, EOMI, PERRLA Ear exam: PRESENT: normal external ear exam Mouth exam: PRESENT: moist, tongue midline Neck exam: PRESENT: full ROM Respiratory exam: PRESENT: decreased breath sounds Cardiovascular exam: PRESENT: RRR, +S1, +S2 Pulses: PRESENT: normal dorsalis pedis pul, +2 pedal pulses bilateral Vascular exam: PRESENT: normal capillary refill GI/Abdominal exam: PRESENT: normal bowel sounds, soft Rectal exam: PRESENT: deferred Neurological exam: PRESENT: alert, awake, oriented to person, oriented to place , oriented to time, oriented to situation, CN II-XII grossly intact Psychiatric exam: PRESENT: appropriate affect, normal mood Skin exam: PRESENT: dry, intact, warm Results Laboratory Results: 11/06/17 06:10 11/06/17 06:10 11/06/17 11/06/17 06:10 06:10 WBC 6.7 RBC 3.46 L Hgb 10.8 L Hct 31.8 L MCV 92 MCH 31.2 MCHC 34.0 RDW 14.6 H Plt Count 385 Seg Neutrophils % Not Reportable Lymphocytes % Not Reportable Monocytes % Not Reportable Eosinophils % Not Reportable Basophils % Not Reportable Absolute Neutrophils Not Reportable Absolute Lymphocytes Not Reportable Absolute Monocytes Not Reportable Absolute Eosinophils Not Reportable Absolute Basophils Not Reportable Sodium 135.4 L Potassium 4.3 Chloride 96 L Carbon Dioxide 31 H Anion Gap 8 BUN 9 Creatinine 0.51 L Est GFR ( Amer) > 60 Est GFR (Non-Af Amer) > 60 Glucose 85 Calcium 9.6 Total Bilirubin 0.1 L AST 34 ALT 28 Alkaline Phosphatase 78 Total Protein 5.4 L Albumin 3.0 L 02/04/18 02/04/18 02/05/18 18:10 18:10 00:10 Creatine Kinase < 20 L < 20 L CK-MB (CK-2) < 0.22 Troponin I < 0.012 11/04/17 11/04/17 11/04/17 00:10 06:30 06:30 Creatine Kinase < 20 L CK-MB (CK-2) < 0.22 < 0.22 Troponin I < 0.012 < 0.012 Impressions: Chest X-Ray 11/03/17 11:53 IMPRESSION: Right lower lobe airspace disease worrisome for pneumonia. No pleural effusion. Chest CT 11/04/17 00:00 IMPRESSION: 1. Bilateral presumed lower lobe pneumonia with parapneumonic effusions. Superimposed on COPD.
[2017-11-06 17:03] VITALS: BP 118/72
[2017-11-07] MEDS ORDERED: AZITHROMYCIN 250 MG TABLET PO SCH (10:00)
== END 2017-11-06 17:15 | disposition home or self-care (01) | DRG 193 ==
LOC: ER 11:35 → EH 13:13 → 3N 11-04 16:07
PROVIDERS: ADMIT Internal Medicine; ATTEND Internal Medicine
PROC: 3E0F73Z Introduction of Anti-inflammatory into Respiratory Tract, Via Natural or Artificial Opening (ICD-10-PCS; principal; 2017-11-04)
DX: J18.9 Pneumonia, unspecified organism (principal); J96.01 Acute respiratory failure with hypoxia; E22.2 Syndrome of inappropriate secretion of antidiuretic hormone; J43.9 Emphysema, unspecified; E87.6 Hypokalemia; I25.10 Atherosclerotic heart disease of native coronary artery without angina pectoris; I10 Essential (primary) hypertension; G89.29 Other chronic pain; E78.5 Hyperlipidemia, unspecified; F41.9 Anxiety disorder, unspecified; Z79.899 Other long term (current) drug therapy; Z90.49 Acquired absence of other specified parts of digestive tract; Z90.710 Acquired absence of both cervix and uterus; F17.200 Nicotine dependence, unspecified, uncomplicated
CPT/HCPCS: 36415; 36600; 71045; 71250; 80053; 81001; 82550; 82553; 82570; 82803; 83605; 83930; 83935; 84156; 84300; 84484; 85025; 87040; 87086; 87088; 87186; 87804; 93005; 93010; 94640; 96365; 99285; J0456; J0696; J1650; J3480; J3490; J7030; J7060; J7620

== ENCOUNTER → 2018-10-23 | Outpatient (CLI) | payer MEDICARE, BC ==
--- NOTE | 2018-10-23 14:47 | RADIOLOGY REPORT (SQ) ---
EXAM DESCRIPTION: VENOUS UNILATERAL LOWER COMPLETED DATE/TIME: 10/23/2018 2:32 pm REASON FOR STUDY: RLE SWELLING R22.41 LOCALIZED SWELLING, MASS AND LUMP, RIGHT LOWER LIMB COMPARISON: None. TECHNIQUE: Dynamic and static downey scale and color images acquired of the right leg venous system. S elected spectral images acquired with additional compression and augmentation maneuvers. The contrala teral common femoral vein and saphenofemoral junction were also imaged. Images stored on PACS. LIMITATIONS: None. FINDINGS: RIGHT COMMON FEMORAL: Normal phasicity, compression and augmentation. No visualized echoge mirza material on downey scale. No defects on color images. FEMORAL: Normal compression and augmentation. No visualized echogenic material on downey scale. No defe cts on color images. POPLITEAL: Normal compression, augmentation. No visualized echogenic material on downey scale. No defec ts on color images. CALF VESSELS: Normal compression, augmentation. No visualized echogenic material on downey scale. No de fects on color images. GSV and SSV: Normal compression, augmentation. No visualized echogenic material on downey scale. No def ects on color images. ANY DEEP VENOUS INSUFFICIENCY: Not evaluated. ANY EVIDENCE OF POPLITEAL CYST: No. OTHER: No other significant finding. LEFT COMMON FEMORAL VEIN AND SAPHENOFEMORAL JUNCTION: Normal phasicity, compression and augmentation. No visualized echogenic material on downey scale. No de fects on color images. IMPRESSION: NO EVIDENCE OF DVT OR SVT IN THE RIGHT LEG. TECHNICAL DOCUMENTATION: JOB ID: [id number] [employer]- All Rights Reserved Reading location - IP/workstation name: [email or web address]
== END ==
LOC: SP 14:57
PROVIDERS: ATTEND Internal Medicine
DX: R22.41 Localized swelling, mass and lump, right lower limb (principal)
CPT/HCPCS: 93971

== ENCOUNTER → 2018-11-20 | Outpatient (CLI) | payer MEDICARE, BC ==
[~2018-11-20] MED LIST: LIDOCAINE 0.5% INJ-PF (5 MG/ML) 50 ML SDV ONE
--- NOTE | 2018-11-20 14:49 | RADIOLOGY REPORT (SQ) ---
EXAM DESCRIPTION: CT CHEST WITHOUT COMPLETED DATE/TIME: 11/20/2018 1:54 pm REASON FOR STUDY: COPD (J44.9) J44.9 CHRONIC OBSTRUCTIVE PULMONARY DISEASE, UNSPECIFIED COMPARISON: CT chest 11/04/2017, 12/31/2013 AP chest 11/03/2017, 01/11/2016 TECHNIQUE: CT scan performed of the chest without intravenous contrast. Images reviewed with lung, soft tissue and bone windows. Reconstructed coronal and sagittal MPR images reviewed. All images st ored on PACS. All CT scanners at this facility use dose modulation, iterative reconstruction, and/or weight based d osing when appropriate to reduce radiation dose to as low as reasonably achievable (ALARA). [facility]: Dose Right [facility]: CareDose [facility]: Dose Right [facility]: Teradose 4D [facility]: [employer]Class RADIATION DOSE: CT Rad equipment meets quality standard of care and radiation dose reduction techniq ues were employed. CTDIvol: 2.8 mGy. DLP: 119 mGy-cm. mGy. LIMITATIONS: No technical limitations. FINDINGS: LUNGS AND PLEURA: Lungs are hyperinflated and hyperlucent from obstructive disease. Biapi jeremiah pleuroparenchymal scarring is present. No worrisome pulmonary nodules. No pleural effusion. No pneumothorax. HILAR AND MEDIASTINAL STRUCTURES: No identified masses or abnormal nodes. No obvious aneurysm. HEART AND VASCULAR STRUCTURES: Ascending thoracic aorta 4 x 4 cm. Remainder of the thoracic aorta is normal caliber. Thoracic aorta at the hiatus 2.3 cm in diameter. Upper abdominal aorta 3.2 x 2.7 c m in diameter at the celiac/ SMA origins. Heavily calcified coronary arteries. No cardiomegaly or p ericardial effusion UPPER ABDOMEN: Post cholecystectomy THYROID AND OTHER SOFT TISSUES: No masses. No adenopathy. BONES: No significant finding. HARDWARE: None in the chest. OTHER: No other significant findings. IMPRESSION: Obstructive lung disease. Stable ectasia ascending thoracic aorta and upper abdominal aorta TECHNICAL DOCUMENTATION: JOB ID: [id number] Quality ID # [id number]: Final reports with documentation of one or more dose reduction techniques (e.g., Au tomated exposure control, adjustment of the mA and/or kV according to patient size, use of iterative reconstruction technique) 2010 [employer]- All Rights Reserved Reading location - IP/workstation name: [email or web address]
== END ==
LOC: RAD 13:31
PROVIDERS: ATTEND Internal Medicine
DX: J44.9 Chronic obstructive pulmonary disease, unspecified (principal); I77.810 Thoracic aortic ectasia
CPT/HCPCS: 71250; J3490

== ENCOUNTER → 2019-11-05 | Outpatient (CLI) | payer MEDICARE, BC ==
--- NOTE | 2019-11-05 19:04 | RADIOLOGY REPORT (SQ) ---
EXAM DESCRIPTION: CT ABD/PELVIS ORAL ONLY COMPLETED DATE/TIME: 11/05/2019 5:04 pm REASON FOR STUDY: R10.9 UNSPECIFIED ABDOMINAL PAIN R10.9 UNSPECIFIED ABDOMINAL PAIN COMPARISON: None. TECHNIQUE: CT scan of the abdomen and pelvis performed without intravenous contrast. Oral contrast was given. Images reviewed with lung, soft tissue, and bone windows. Reconstructed coronal and sagitt al MPR images reviewed. All images stored on PACS. All CT scanners at this facility use dose modulation, iterative reconstruction, and/or weight based d osing when appropriate to reduce radiation dose to as low as reasonably achievable (ALARA). [facility]: Dose Right [facility]: CareDose [facility]: Dose Right [facility]: Teradose 4D [facility]: [employer] RADIATION DOSE: CT Rad equipment meets quality standard of care and radiation dose reduction techniq ues were employed. CTDIvol: 2.4 mGy. DLP: 107 mGy-cm.mGy. LIMITATIONS: None. FINDINGS: LOWER CHEST: No significant findings. No nodules or infiltrates. NON-CONTRASTED LIVER, SPLEEN, ADRENALS: Evaluation limited by lack of IV contrast. No identified sign ificant masses. PANCREAS: No masses. No peripancreatic inflammatory changes. GALLBLADDER: No identified stones by CT criteria. No inflammatory changes to suggest cholecystitis. RIGHT KIDNEY AND URETER: No suspicious masses. Assessment limited by lack of IV contrast. No signif icant calcifications. No hydronephrosis or hydroureter. LEFT KIDNEY AND URETER: No suspicious masses. Assessment limited by lack of IV contrast. No signifi cant calcifications. No hydronephrosis or hydroureter. 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 There are some eccentric jeremiah cifications. No extravasated fresh blood is seen. BOWEL AND PERITONEAL CAVITY: No obvious masses or inflammatory changes. No free fluid. APPENDIX: Not identified. PELVIS, BLADDER, AND ABDOMINAL WALL:No abnormal masses. No free fluid. Bladder normal. BONES: No significant findings. OTHER: No other significant finding. IMPRESSION: 1. 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 There are some eccentric calcification s. Cannot exclude a slow leak. There is no fresh extravasated blood. 2. No other significant finding in the abdomen or pelvis. COMMENT: Unsuccessfully attempted to call report to the ordering physician at 1858 hours on this олег e. The number given is an office number. Quality ID # [id number]: Final reports with documentation of one or more dose reduction techniques (e.g., Au tomated exposure control, adjustment of the mA and/or kV according to patient size, use of iterative reconstruction technique) TECHNICAL DOCUMENTATION: JOB ID: [id number] [employer]- All Rights Reserved Reading location - IP/workstation name: [email or web address]
== END ==
LOC: RAD 14:11
PROVIDERS: ATTEND Internal Medicine
DX: I71.4 Abdominal aortic aneurysm, without rupture (principal); R10.9 Unspecified abdominal pain
CPT/HCPCS: 74176

== ENCOUNTER 2020-07-27 13:14 | Inpatient (IN) | payer MEDICARE, BC ==
--- NOTE | 2020-07-27 13:47 | ER Document Report ---
ED Medical Screen (RME) - General Chief Complaint: Abnormal Lab Results Stated Complaint: ABNORMAL LABS/WEAKNESS Time Seen by Provider: 07/27/20 13:32 Primary Care Provider: VEDA RYAN MD [Primary Care Provider] - Follow up as needed TRAVEL OUTSIDE OF THE [place] IN LAST 30 DAYS: No - HPI Notes: 07/27/20 13:45 75-year-old female to the emergency department sent from her primary care's office, Dr. Ryan, for abnormal lab results and weakness. Patient states that she has been feeling morning time weakness for several weeks now. She states she did not really sure why she is here. She states that she went to see Dr. Ryan this morning for symptoms of depression. She states she has been feeling low for the past 2 months after her fianc walked out on her before they got . She states that she is not having any SI, HI, hallucinations. Did call Dr. Ryan. He states that her sodium and potassium are low. He thinks she may be dehydrated and need IVF. He states he would like for phone call once we evaluate her and treat her. I performed a brief medical screening exam on the patient determined that the patient needs further evaluation and management by main side provider. I have placed initial orders to help expedite care. - Related Data Allergies/Adverse Reactions: levofloxacin [From Levaquin] Allergy (Intermediate, Verified 07/27/20 13:30) Difficulty breathing Past Medical History - Social History Family history: None - Past Medical History Cardiac Medical History: Reports: Hx Coronary Artery Disease, Hx Hypertension - ON MEDICATION Denies: Hx Heart Attack Pulmonary Medical History: Reports: Hx COPD Denies: Hx Asthma, Hx Bronchitis, Hx Pneumonia Neurological Medical History: Denies: Hx Cerebrovascular Accident, Hx Seizures Renal/ Medical History: Denies: Hx Peritoneal Dialysis Musculoskeltal Medical History: Reports Hx Arthritis - back,top right foot,neck occas Psychiatric Medical History: Reports: Hx Anxiety Denies: Hx Depression Past Surgical History: Reports: Hx Bowel Surgery, Hx Cholecystectomy. Denies: Hx Hysterectomy - Immunizations Hx Diphtheria, Pertussis, Tetanus Vaccination: No Physical Exam - Vital signs Vitals: Temp Pulse Resp BP Pulse Ox 97.7 F 92 16 118/70 97 07/27/20 13:20 07/27/20 13:20 07/27/20 13:20 07/27/20 13:20 07/27/20 13:20 Course - Vital Signs Vital signs: Temp Pulse Resp BP Pulse Ox 97.7 F 92 16 118/70 97 07/27/20 13:20 07/27/20 13:20 07/27/20 13:20 07/27/20 13:20 07/27/20 13:20 Doctor's Discharge - Discharge Referrals: EVDA RYAN MD [Primary Care Provider] - Follow up as needed
[2020-07-27 14:12] LABS: ABSOLUTE LYMPHOCYTES (AUTO) 1.5 10^3/uL (0.5-4.7); ABSOLUTE MONOCYTES (AUTO) 0.5 10^3/uL (0.1-1.4); ABSOLUTE NEUT (AUTO) 5.1 10^3/uL (1.7-8.2); BASOPHILS % (AUTO) 0.5 % (0-2); EOSINOPHILS % (AUTO) 0.5 % (0-6); HEMATOCRIT 34.6 % (36.0-47.0); HEMOGLOBIN 12.4 g/dL (12.0-15.5); LYMPHOCYTES % (AUTO) 21.5 % (13-45); MEAN CORPUSCULAR HEMOGLOBIN 32.4 pg (27.0-33.4); MEAN CORPUSCULAR HGB CONC 35.9 g/dL (32.0-36.0); MEAN CORPUSCULAR VOLUME 90 fl (80-97); MONOCYTES % (AUTO) 6.5 % (3-13); PLATELET COUNT 238 10^3/uL (150-450); RED BLOOD COUNT 3.83 10^6/uL (3.72-5.28); RED CELL DISTRIBUTION WIDTH 13.4 % (11.5-14.0); TOTAL CELLS COUNTED % (AUTO) 100 %; WHITE BLOOD COUNT 7.2 10^3/uL (4.0-10.5)
[2020-07-27 14:24] LABS: ALBUMIN 4.4 g/dL (3.5-5.0); ALKALINE PHOSPHATASE 88 U/L (38-126); ANION GAP 10 (5-19); ASPARTATE AMINO TRANSFERASE 34 U/L (14-36); BILIRUBIN,DIRECT 0.2 mg/dL (0.0-0.4); BILIRUBIN,TOTAL 0.5 mg/dL (0.2-1.3); BLOOD UREA NITROGEN 9 mg/dL (7-20); CALCIUM 10.3 mg/dL (8.4-10.2); CARBON DIOXIDE 34 mmol/L (22-30); CHLORIDE 82 mmol/L (98-107); GLUCOSE 122 mg/dL (75-110); POTASSIUM 4.3 mmol/L (3.6-5.0); TOTAL PROTEIN 6.8 g/dL (6.3-8.2)
--- NOTE | 2020-07-27 15:52 | ER Document Report ---
ED General - General Chief Complaint: Abnormal Lab Results Stated Complaint: ABNORMAL LABS/WEAKNESS Time Seen by Provider: 07/27/20 13:32 Primary Care Provider: VEDA RYAN MD [Primary Care Provider] - Follow up as needed Notes: Patient is a 75-year-old white female with a history of hypertension, SIADH, depression, hyponatremia, spinal stenosis who presents to the emergency department the chief complaint of being sent by Dr. Ryan for low sodium. Patient reports that she has had some slight lower extremity weakness over the past couple weeks but nothing significant. She states that she had blood work done on Saturday and followed up with Dr. Ryan today due to depression. She states that the hyponatremia was noted and she was instructed to report here for further care and management. Patient denies any other symptoms. No headache. No seizures. No chest pain or shortness of breath. No abdominal pain. No nausea or vomiting. No urinary changes. No diarrhea. TRAVEL OUTSIDE OF THE [place] IN LAST 30 DAYS: No - Related Data Allergies/Adverse Reactions: levofloxacin [From LevNew Relic] Allergy (Intermediate, Verified 07/27/20 13:30) Difficulty breathing Past Medical History - Social History Smoking Status: Former Smoker Family History: Reviewed & Not Pertinent Patient has homicidal ideation: No - Past Medical History Cardiac Medical History: Reports: Hx Coronary Artery Disease, Hx Hypertension - ON MEDICATION Denies: Hx Heart Attack Pulmonary Medical History: Reports: Hx COPD Denies: Hx Asthma, Hx Bronchitis, Hx Pneumonia Neurological Medical History: Denies: Hx Cerebrovascular Accident, Hx Seizures Renal/ Medical History: Denies: Hx Peritoneal Dialysis Musculoskeletal Medical History: Reports Hx Arthritis - back,top right foot,neck occas Psychiatric Medical History: Reports: Hx Anxiety Denies: Hx Depression Past Surgical History: Reports: Hx Bowel Surgery, Hx Cholecystectomy. Denies: Hx Hysterectomy - Immunizations Hx Diphtheria, Pertussis, Tetanus Vaccination: No Hx Pneumococcal Vaccination: 09/30/14 Review of Systems - Review of Systems Constitutional: denies: Fever EENT: denies: Nose congestion Cardiovascular: denies: Syncope Respiratory: denies: Stridor Gastrointestinal: denies: Vomiting Genitourinary: denies: Frequency Female Genitourinary: denies: Heavy/abnormal periods Musculoskeletal: denies: Neck pain Skin: denies: Change in hair/nails Hematologic/Lymphatic: denies: Blood clots Neurological/Psychological: Weakness Physical Exam - Vital signs Vitals: Temp Pulse Resp BP Pulse Ox 97.7 F 92 16 118/70 97 07/27/20 13:20 07/27/20 13:20 07/27/20 13:20 07/27/20 13:20 07/27/20 13:20 - General General appearance: Appears well, Alert In distress: None - HEENT Head: Normocephalic, Atraumatic Extraocular movements intact: Yes Pupils: PERRL Neck: Supple - Respiratory Respiratory status: No respiratory distress Chest status: Nontender Breath sounds: Normal Chest palpation: Normal - Cardiovascular Rhythm: Regular Heart sounds: Normal auscultation - Extremities General upper extremity: Normal inspection, Normal strength. No: Edema General lower extremity: Normal inspection, Normal strength. 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 Ryan was paged. I started a 100 mL bolus of hypertonic saline to attempt any further drop in the sodium from 125.7. Patient was having some complaints of slight weakness in the lower extremities for the past 2 weeks, unclear if this is related to the hyponatremia or her chronic spinal stenosis. I called and spoke with Dr. Ryan at 5 PM who recommended fluids to continue at normal saline at 70 cc/h. This order has been placed, Dr. Ryan will admit. Patient stable at this time. - Vital Signs Vital signs: Temp Pulse Resp BP Pulse Ox 97.7 F 92 16 118/70 97 07/27/20 13:20 07/27/20 13:20 07/27/20 13:20 07/27/20 13:20 07/27/20 13:20 - Laboratory Result Diagrams: 07/27/20 13:51 07/27/20 13:51 Laboratory results interpreted by me: 07/27/20 07/27/20 13:51 13:51 Hct 34.6 L Sodium 125.7 L Chloride 82 L Carbon Dioxide 34 H Glucose 122 H Calcium 10.3 H Discharge - Discharge Clinical Impression: Hyponatremia Condition: Serious Disposition: ADMITTED INPATIENT Admitting Provider: Carmella Unit Admitted: Telemetry Referrals: VEDA RYAN MD [Primary Care Provider] - Follow up as needed
[2020-07-27] MEDS ORDERED: SODIUM CHLORIDE 3% 100 ML IV ONE (15:54)
[2020-07-27] MEDS ORDERED: NORMAL SALINE 1000 ML 1,000 ML IV ONE (16:59)
[2020-07-27 18:21] LABS: APPEARANCE,URINE SLIGHTLY-CLOUDY; BILIRUBIN,URINE NEGATIVE (NEGATIVE); COLOR,URINE YELLOW; GLUCOSE, URINE NEGATIVE (NEGATIVE); KETONES,URINE NEGATIVE (NEGATIVE); PROTEIN,URINE NEGATIVE (NEGATIVE); URINE SPECIFIC GRAVITY 1.009; UROBILINOGEN,URINE NEGATIVE mg/dL (<2.0)
[2020-07-27] MEDS ORDERED: MORPHINE SULFATE 10 MG/ML INJ IV ONE (18:21)
[2020-07-27] MEDS ORDERED: ONDANSETRON HCL INJ/PF 4 MG/2 ML SDV IV ONE (18:21)
[2020-07-27] MEDS ORDERED: ALBUTEROL SULFATE HFA (90 MCG/PUFF) 8 GM MDI (1 MDI/ER DISP) IH PRN (19:40)
[2020-07-27] MEDS ORDERED: NORMAL SALINE 1000 ML 1,000 ML IV PRN (19:41)
[2020-07-27] MEDS ORDERED: (PENDING PHARMACY ID) (Brexpiprazole [Rexulti] 0.5 MG) PO SCH (19:45)
[2020-07-27] MEDS ORDERED: (PENDING PHARMACY ID) (Fluticasone/Salmeterol 1 PUFF) IH SCH (19:45)
--- NOTE | 2020-07-27 19:49 | PDOC H&P ---
History of Present Illness Admission Date/PCP: 07/27/20 17:17 VEDA RYAN MD History of Present Illness: MAYURI BAILEY is a 75 year old female, She has a history of chronic obstructive lung disease, tobacco dependence, Hypertension, she came to the office for follow-up evaluation, she complain of depression, the blood that was done in the office demonstrated hyponatremia, hypokalemia, elevated CO2 that suggest dehydration. Because of the electrolyte abnormalities patient was called from home to go to emergency room for evaluation and possible correction of the electrolytes.She was seen and evaluated in the emergency room, inpatient care was advised. She was admitted and treated with normal saline the most recent sodium is 126. She has a history of SIADH, She was advised to restrict fluid to no more than 50 ounces daily this correlates with 1.5 L of fluid daily.The other alternative is to treat with tolvaptan, a very expensive drug with many potential side effects especially liver side effects,She was again advised of the need to stop smoking Past Medical History Cardiac Medical History: Reports: Coronary Artery Disease, Hypertension - ON MEDICATION Pulmonary Medical History: Reports: Chronic Obstructive Pulmonary Disease (COPD) Musculoskeltal Medical History: Reports: Arthritis - back,top right foot,neck occas Psychiatric Medical History: Reports: Depression Past Surgical History Past Surgical History: Reports: Cholecystectomy Social History Smoking Status: Former Smoker Frequency of Alcohol Use: Occasional Hx Recreational Drug Use: No Drugs: None Hx Prescription Drug Abuse: No Family History Family History: Reviewed & Not Pertinent Parental Family History Reviewed: Yes Children Family History Reviewed: Yes Sibling(s) Family History Reviewed.: Yes Medication/Allergy Home Medications: Hydrocodone/Acetaminophen [Hydrocodone-Acetamin 10-325 mg] 1 tab PO Q6HP PRN 11/04/17 Isosorbide Mononitrate [Isosorbide Mononitrate ER] 30 mg PO DAILY 11/04/17 Albuterol Sulfate [Proair HFA Inhalation Aerosol 8.5 gm MDI] 2 puff IH Q4HP PRN 07/27/20 Aspirin [Adult Low Dose Aspirin EC] 81 mg PO QHS 07/27/20 Brexpiprazole [Rexulti] 0.5 mg PO DAILY 07/27/20 Fluticasone/Salmeterol [Advair 500-50 Diskus 14 Dose/Diskus] 1 puff IH Q12 07/27/20 Montelukast Sodium [Singulair 10 mg Tablet] 10 mg PO DAILY 07/27/20 Olmesartan/Amlodipin/Hcthiazid [Tribenzor 40-10-25 mg Tablet] 1 tab PO DAILY 07/27/20 Sertraline HCl [Zoloft 50 mg Tablet] 50 mg PO DAILY 07/27/20 Atorvastatin Calcium [Lipitor 20 mg Tablet] 20 mg PO QHS #90 tablet 07/28/20 Allergies/Adverse Reactions: levofloxacin [From Levaquin] Allergy (Intermediate, Verified 07/27/20 13:30) Difficulty breathing Review of Systems Constitutional: ABSENT: chills, fever(s), headache(s), weight gain, weight loss Eyes: ABSENT: visual disturbances Ears: ABSENT: hearing changes Cardiovascular: ABSENT: chest pain, dyspnea on exertion, edema, orthropnea, palpitations Respiratory: ABSENT: cough, hemoptysis Gastrointestinal: ABSENT: abdominal pain, constipation, diarrhea, hematemesis, hematochezia, nausea, vomiting Genitourinary: ABSENT: dysuria, hematuria Musculoskeletal: ABSENT: joint swelling Integumentary: ABSENT: rash, wounds Neurological: ABSENT: abnormal gait, abnormal speech, confusion, dizziness, focal weakness, syncope Psychiatric: ABSENT: anxiety, depression, homidical ideation, suicidal ideation Endocrine: ABSENT: cold intolerance, heat intolerance, menstrual abnormalities, polydipsia, polyuria Hematologic/Lymphatic: ABSENT: easy bleeding, easy bruising, lymphadenopathy Physical Exam Vital Signs: Temp Pulse Resp BP Pulse Ox 97.7 F 72 16 137/67 H 95 07/27/20 18:55 07/27/20 18:55 07/27/20 18:55 07/27/20 18:55 07/27/20 18:55 Intake & Output 07/26/20 07/27/20 07/28/20 06:59 06:59 06:59 Weight 61.235 kg General appearance: PRESENT: no acute distress, well-developed, well-nourished Head exam: PRESENT: atraumatic, normocephalic Eye exam: PRESENT: conjunctiva pink, EOMI, PERRLA Ear exam: PRESENT: normal external ear exam Mouth exam: PRESENT: moist, tongue midline Neck exam: PRESENT: full ROM Respiratory exam: PRESENT: clear to auscultation eze Cardiovascular exam: PRESENT: RRR, +S1, +S2 Pulses: PRESENT: normal dorsalis pedis pul, +2 pedal pulses bilateral Vascular exam: PRESENT: normal capillary refill GI/Abdominal exam: PRESENT: normal bowel sounds, soft Rectal exam: PRESENT: deferred Neurological exam: PRESENT: alert, awake, oriented to person, oriented to place, oriented to time, oriented to situation, CN II-XII grossly intact Psychiatric exam: PRESENT: appropriate affect, normal mood Skin exam: PRESENT: dry, intact, warm Results Laboratory Results: 07/27/20 13:51 07/27/20 13:51 07/27/20 07/27/20 07/27/20 13:51 13:51 13:51 WBC 7.2 RBC 3.83 Hgb 12.4 Hct 34.6 L MCV 90 MCH 32.4 MCHC 35.9 RDW 13.4 Plt Count 238 Seg Neutrophils % 71.0 Sodium 125.7 L Potassium 4.3 Chloride 82 L Carbon Dioxide 34 H Anion Gap 10 BUN 9 Creatinine 0.76 Est GFR ( Amer) > 60 Glucose 122 H Serum Osmolality 265 L Calcium 10.3 H Magnesium 1.8 Total Bilirubin 0.5 AST 34 Alkaline Phosphatase 88 Total Protein 6.8 Albumin 4.4 Urine Color Urine Appearance Urine pH Ur Specific [place] Urine Protein Urine Glucose (UA) Urine Ketones Urine Blood Urine RBC (Auto) Urine Osmolality 07/27/20 07/27/20 16:43 16:43 WBC RBC Hgb Hct MCV MCH MCHC RDW Plt Count Seg Neutrophils % Sodium Potassium Chloride Carbon Dioxide Anion Gap BUN Creatinine Est GFR ( Amer) Glucose Serum Osmolality Calcium Magnesium Total Bilirubin AST Alkaline Phosphatase Total Protein Albumin Urine Color YELLOW Urine Appearance SLIGHTLY-CLOUDY Urine pH 7.0 Ur Specific [place] 1.009 Urine Protein NEGATIVE Urine Glucose (UA) NEGATIVE Urine Ketones NEGATIVE Urine Blood NEGATIVE Urine RBC (Auto) 0 Urine Osmolality 252 L Assessment & Plan - Diagnosis (1) SIADH (syndrome of inappropriate ADH production) Is this a current diagnosis for this admission?: Yes Plan: She has SIADH, she is not symptomatic from the SIADH the lab work that was done outpatient revealed hypokalemia but the lab work that was drawn emergency room revealed normal potassium patient was slowly hydrated the most recent sodium is 126, she be discharged home advised to restrict fluid to no more than 50 ounces in 24 hours (2) Undernutrition Is this a current diagnosis for this admission?: Yes (3) COPD (chronic obstructive pulmonary disease) Qualifiers: COPD type: COPD with acute lower respiratory infection Qualified Code(s): J44.0 - Chronic obstructive pulmonary disease with (acute) lower respiratory infection Is this a current diagnosis for this admission?: Yes - Time Time Spent: Greater than 70 Minutes Medications reviewed and adjusted accordingly: Yes Anticipated Discharge Disposition: Home, Self Care Anticipated Discharge Timeframe: within 24 hours
[2020-07-27] MEDS ORDERED: ALBUTEROL SULFATE HFA (90 MCG/PUFF) 8 GM MDI IH PRN (19:52)
[2020-07-27] MEDS ORDERED: ENOXAPARIN SODIUM INJ 40 MG/0.4 ML DISP.SYRIN SUBCUT SCH ×2 (20:00→23:15)
[2020-07-27] MEDS ORDERED: SERTRALINE HCL 50 MG TABLET PO SCH (20:00)
[2020-07-27 20:50] LABS: PROTHROMBIN TIME 13.4 SEC (11.4-15.4)
[2020-07-27 20:51] LABS: PARTIAL THROMBOPLASTIN TIME 30.4 SEC (23.5-35.8)
[2020-07-27 20:59] LABS: PHOSPHORUS 3.1 mg/dL (2.5-4.5)
[2020-07-27 21:00] LABS: AMYLASE < 30 U/L (30-110)
[2020-07-27 21:12] LABS: CREATINE KINASE MB 1.28 ng/mL (<4.55)
[2020-07-27 21:16] LABS: FREE T4 (FREE THYROXINE) 1.31 ng/dL (0.78-2.19)
[2020-07-27 21:17] LABS: TROPONIN I < 0.012 ng/mL
[2020-07-27 21:30] LABS: THYROID STIMULATING HORMONE 0.91 uIU/mL (0.47-4.68)
[2020-07-27] MEDS: SERTRALINE HCL 50 MG TABLET PO SCH (23:17)
[2020-07-27] MEDS: HYDROCODONE/ACETAMINOPHEN 10-325 MG TABLET PO PRN (23:44)
[2020-07-28 02:34] LABS: CREATINE KINASE MB 1.22 ng/mL (<4.55)
[2020-07-28 02:36] LABS: TROPONIN I < 0.012 ng/mL
[2020-07-28] MEDS: HYDROCODONE/ACETAMINOPHEN 10-325 MG TABLET PO PRN ×2 (08:02→14:24)
[2020-07-28 09:19] LABS: ABSOLUTE LYMPHOCYTES (AUTO) 1.4 10^3/uL (0.5-4.7); ABSOLUTE MONOCYTES (AUTO) 0.3 10^3/uL (0.1-1.4); ABSOLUTE NEUT (AUTO) 3.7 10^3/uL (1.7-8.2); BASOPHILS % (AUTO) 0.7 % (0-2); EOSINOPHILS % (AUTO) 0.8 % (0-6); HEMATOCRIT 32.6 % (36.0-47.0); HEMOGLOBIN 11.5 g/dL (12.0-15.5); LYMPHOCYTES % (AUTO) 25.8 % (13-45); MEAN CORPUSCULAR HEMOGLOBIN 31.8 pg (27.0-33.4); MEAN CORPUSCULAR HGB CONC 35.2 g/dL (32.0-36.0); MEAN CORPUSCULAR VOLUME 90 fl (80-97); MONOCYTES % (AUTO) 5.9 % (3-13); PLATELET COUNT 218 10^3/uL (150-450); RED BLOOD COUNT 3.61 10^6/uL (3.72-5.28); RED CELL DISTRIBUTION WIDTH 13.6 % (11.5-14.0); SEGMENTED NEUTROPHILS % (AUTO) 66.8 % (42-78); TOTAL CELLS COUNTED % (AUTO) 100 %; WHITE BLOOD COUNT 5.6 10^3/uL (4.0-10.5)
[2020-07-28 09:33] LABS: ALBUMIN 3.9 g/dL (3.5-5.0); ALKALINE PHOSPHATASE 79 U/L (38-126); ANION GAP 8 (5-19); ASPARTATE AMINO TRANSFERASE 35 U/L (14-36); BILIRUBIN,DIRECT 0.2 mg/dL (0.0-0.4); BILIRUBIN,TOTAL 0.6 mg/dL (0.2-1.3); BLOOD UREA NITROGEN 9 mg/dL (7-20); CALCIUM 9.7 mg/dL (8.4-10.2); CARBON DIOXIDE 33 mmol/L (22-30); CHLORIDE 86 mmol/L (98-107); CHOLESTEROL 169.55 mg/dL (0-200); GLUCOSE 117 mg/dL (75-110); TOTAL PROTEIN 6.1 g/dL (6.3-8.2); TRIGLYCERIDES 100 mg/dL (<150)
[2020-07-28 09:44] LABS: DIRECT LDL 62 mg/dL (<100)
[2020-07-28 09:49] LABS: POTASSIUM 3.3 mmol/L (3.6-5.0)
[2020-07-28 09:58] LABS: CREATINE KINASE MB 1.09 ng/mL (<4.55)
[2020-07-28] MEDS ORDERED: FLUTICASONE/VILANTEROL 200-25 MCG/DOSE IH SCH (10:00)
[2020-07-28] MEDS ORDERED: ENOXAPARIN SODIUM INJ 30 MG/0.3 ML DISP.SYRIN SUBCUT SCH (10:00)
[2020-07-28] MEDS: SERTRALINE HCL 50 MG TABLET PO SCH (10:00)
[2020-07-28 10:04] LABS: TROPONIN I < 0.012 ng/mL
[2020-07-28 16:19] VITALS: BP 118/70
[2020-07-28] MEDS ORDERED: POTASSIUM CHLORIDE 10 MEQ TABLET.ER PO ONE (18:19)
--- NOTE | 2020-07-28 21:05 | PDOC DISCHARGE SUMMARY ---
Impression - Admit/DC Date/PCP Admission Date/Primary Care Provider: 07/27/20 17:17 VEDA RYAN MD Discharge Date: 07/28/20 - Discharge Diagnosis (1) SIADH (syndrome of inappropriate ADH production) Is this a current diagnosis for this admission?: Yes (2) Undernutrition Is this a current diagnosis for this admission?: Yes (3) COPD (chronic obstructive pulmonary disease) Is this a current diagnosis for this admission?: Yes - Additional Information Referrals: VEDA RYAN MD [Primary Care Provider] - 08/04/20 10:45 am Prescriptions: Atorvastatin Calcium [Lipitor 20 mg Tablet] 20 mg PO QHS #90 tablet Home Medications: Hydrocodone/Acetaminophen [Hydrocodone-Acetamin 10-325 mg] 1 tab PO Q6HP PRN 11/04/17 Isosorbide Mononitrate [Isosorbide Mononitrate ER] 30 mg PO DAILY 11/04/17 Albuterol Sulfate [Proair HFA Inhalation Aerosol 8.5 gm MDI] 2 puff IH Q4HP PRN 07/27/20 Aspirin [Adult Low Dose Aspirin EC] 81 mg PO QHS 07/27/20 Brexpiprazole [Rexulti] 0.5 mg PO DAILY 07/27/20 Fluticasone/Salmeterol [Advair 500-50 Diskus 14 Dose/Diskus] 1 puff IH Q12 07/27/20 Montelukast Sodium [Singulair 10 mg Tablet] 10 mg PO DAILY 07/27/20 Olmesartan/Amlodipin/Hcthiazid [Tribenzor 40-10-25 mg Tablet] 1 tab PO DAILY 07/27/20 Sertraline HCl [Zoloft 50 mg Tablet] 50 mg PO DAILY 07/27/20 Atorvastatin Calcium [Lipitor 20 mg Tablet] 20 mg PO QHS #90 tablet 07/28/20 History of Present Illiness History of Present Illness: MAYURI BAILEY is a 75 year old female, She has a history of chronic obstructive lung disease, tobacco dependence, Hypertension, she came to the office for follow-up evaluation, she complain of depression, the blood that was done in the office demonstrated hyponatremia, hypokalemia, elevated CO2 that suggest dehydration. Because of the electrolyte abnormalities patient was called from home to go to emergency room for evaluation and possible correction of the electrolytes.She was seen and evaluated in the emergency room, inpatient care was advised. She was admitted and treated with normal saline the most recent sodium is 126. She has a history of SIADH, She was advised to restrict fluid to no more than 50 ounces daily this correlates with 1.5 L of fluid daily.The other alternative is to treat with tolvaptan, a very expensive drug with many potential side effects especially liver side effects,She was again advised of the need to stop smoking Hospital Course Hospital Course: .Patient was admitted for the management of hyponatremia of SIADH type, she was treated with normal saline, the most recent sodium is 126.She had hypokalemia outpatient but lab drawn in the emergency room the serum potassium was normal.She was admitted for observation, she is advised to restrict fluid to no more than 50 ounces in 24 hours Physical Exam Vital Signs: Temp Pulse Resp BP Pulse Ox 98.7 F 66 15 118/70 96 07/28/20 15:18 07/28/20 15:18 07/28/20 15:18 07/28/20 15:18 07/28/20 15:18 Intake & Output 07/27/20 07/28/20 07/29/20 06:59 06:59 06:59 Weight 42 kg General appearance: PRESENT: no acute distress Eye exam: PRESENT: PERRLA Respiratory exam: PRESENT: clear to auscultation eze Cardiovascular exam: PRESENT: +S1, +S2 GI/Abdominal exam: PRESENT: soft Neurological exam: PRESENT: alert, CN II-XII grossly intact Results Laboratory Results: WBC 5.6 10^3/uL (4.0-10.5) 07/28/20 08:47 RBC 3.61 10^6/uL (3.72-5.28) L 07/28/20 08:47 Hgb 11.5 g/dL (12.0-15.5) L 07/28/20 08:47 Hct 32.6 % (36.0-47.0) L 07/28/20 08:47 MCV 90 fl (80-97) 07/28/20 08:47 MCH 31.8 pg (27.0-33.4) 07/28/20 08:47 MCHC 35.2 g/dL (32.0-36.0) 07/28/20 08:47 RDW 13.6 % (11.5-14.0) 07/28/20 08:47 Plt Count 218 10^3/uL (150-450) 07/28/20 08:47 Lymph % (Auto) 25.8 % (13-45) 07/28/20 08:47 [place] % (Auto) 5.9 % (3-13) 07/28/20 08:47 Eos % (Auto) 0.8 % (0-6) 07/28/20 08:47 Baso % (Auto) 0.7 % (0-2) 07/28/20 08:47 Absolute Neuts (auto) 3.7 10^3/uL (1.7-8.2) 07/28/20 08:47 Absolute Lymphs (auto) 1.4 10^3/uL (0.5-4.7) 07/28/20 08:47 Absolute Monos (auto) 0.3 10^3/uL (0.1-1.4) 07/28/20 08:47 Absolute Eos (auto) 0.0 10^3/uL (0.0-0.6) 07/28/20 08:47 Absolute Basos (auto) 0.0 10^3/uL (0.0-0.2) 07/28/20 08:47 Seg Neutrophils % 66.8 % (42-78) 07/28/20 08:47 PT 13.4 SEC (11.4-15.4) 07/27/20 20:29 INR 1.00 07/27/20 20:29 APTT 30.4 SEC (23.5-35.8) 07/27/20 20:29 Sodium 126.5 mmol/L (137-145) L 07/28/20 08:47 Potassium 3.3 mmol/L (3.6-5.0) L D 07/28/20 08:47 Chloride 86 mmol/L (98-107) L 07/28/20 08:47 Carbon Dioxide 33 mmol/L (22-30) H 07/28/20 08:47 Anion Gap 8 (5-19) 07/28/20 08:47 BUN 9 mg/dL (7-20) 07/28/20 08:47 Creatinine 0.68 mg/dL (0.52-1.25) 07/28/20 08:47 Est GFR ( Amer) > 60 (>60) 07/28/20 08:47 Est GFR (MDRD) Non-Af > 60 (>60) 07/28/20 08:47 Glucose 117 mg/dL (75-110) H 07/28/20 08:47 Hemoglobin A1c % 4.7 % (4.7-6.0) 07/28/20 08:47 Serum Osmolality 265 mOsm/kg (275-301) L 07/27/20 13:51 Calcium 9.7 mg/dL (8.4-10.2) 07/28/20 08:47 Phosphorus 3.1 mg/dL (2.5-4.5) 07/27/20 20: Magnesium 1.6 mg/dL (1.6-2.3) 07/27/20 20: Total Bilirubin 0.6 mg/dL (0.2-1.3) 07/28/20 08:47 Direct Bilirubin 0.2 mg/dL (0.0-0.4) 07/28/20 08:47 Neonat Total Bilirubin Not Reportable 07/28/20 08:47 Neonat Direct Bilirubin Not Reportable 07/28/20 08:47 Neonat Indirect Bili Not Reportable 07/28/20 08:47 AST 35 U/L (14-36) 07/28/20 08:47 ALT 16 U/L (<35) 07/28/20 08:47 Alkaline Phosphatase 79 U/L (38-126) 07/28/20 08:47 Ammonia < 8.7 umol/L (9-33) L 07/27/20 20:29 Creatine Kinase 74 U/L (30-135) 07/28/20 08:47 CK-MB (CK-2) 1.09 ng/mL (<4.55) 07/28/20 08:47 Troponin I < 0.012 ng/mL 07/28/20 08:47 Total Protein 6.1 g/dL (6.3-8.2) L 07/28/20 08:47 Albumin 3.9 g/dL (3.5-5.0) 07/28/20 08:47 Triglycerides 100 mg/dL (<150) 07/28/20 08:47 Cholesterol 169.55 mg/dL (0-200) 07/28/20 08:47 LDL Cholesterol Direct 62 mg/dL (<100) 07/28/20 08:47 VLDL Cholesterol 20.0 mg/dL (10-31) 07/28/20 08:47 HDL Cholesterol 92 mg/dL (>40) 07/28/20 08:47 Amylase < 30 U/L (30-110) L 07/27/20 20: Lipase 59.9 U/L (23-300) 07/27/20 20: TSH 0.91 uIU/mL (0.47-4.68) 07/27/20 20: Free T4 1.31 ng/dL (0.78-2.19) 07/27/20 20: Urine Color YELLOW 07/27/20 16:43 Urine Appearance SLIGHTLY-CLOUDY 07/27/20 16:43 Urine pH 7.0 (5.0-9.0) 07/27/20 16:43 Ur Specific [place] 1.009 07/27/20 16:43 Urine Protein NEGATIVE mg/dL (NEGATIVE) 07/27/20 16:43 Urine Glucose (UA) NEGATIVE mg/dL (NEGATIVE) 07/27/20 16:43 Urine Ketones NEGATIVE mg/dL (NEGATIVE) 07/27/20 16:43 Urine Blood NEGATIVE (NEGATIVE) 07/27/20 16:43 Urine Nitrite (Reflex) NEGATIVE (NEGATIVE) 07/27/20 16:43 Urine Bilirubin NEGATIVE (NEGATIVE) 07/27/20 16:43 Urine Urobilinogen NEGATIVE mg/dL (<2.0) 07/27/20 16:43 Leukocyte Esterase Rfl NEGATIVE (NEGATIVE) 07/27/20 16:43 Urine RBC (Auto) 0 /HPF 07/27/20 16:43 Urine Bacteria (Auto) 1+ /HPF 07/27/20 16:43 Urine WBC (Reflex) 4 /HPF 07/27/20 16:43 Squamous Epi Cells Auto <1 /HPF 07/27/20 16:43 Urine Mucus (Auto) RARE /LPF 07/27/20 16:43 Urine Osmolality 252 mOsm/kg (300-900) L 07/27/20 16:43 Urine Sodium 59 mmol/L (30-90) 07/27/20 16:43 Urine Ascorbic Acid NEGATIVE (NEGATIVE) 07/27/20 16:43 07/27/20 07/28/20 07/28/20 20:29 01:42 08:47 CK-MB (CK-2) 1.28 1.22 1.09 Troponin I < 0.012 < 0.012 < 0.012 Stroke Is this a Stroke Patient?: No Acute Heart Failure Is this a Heart Failure Patient?: No
[2020-07-29] MEDS ORDERED: INFLUENZA QUAD (6MOS+) 2020-21 VAC 0.5 ML SYR IM ONE (08:00)
== END 2020-07-28 20:00 | disposition home or self-care (01) | DRG 644 ==
LOC: ER 13:14 → EH 17:17 → 5 20:48
PROVIDERS: ADMIT Internal Medicine; ATTEND Internal Medicine
DX: E22.2 Syndrome of inappropriate secretion of antidiuretic hormone (principal); E46 Unspecified protein-calorie malnutrition; I10 Essential (primary) hypertension; F32.9 Major depressive disorder, single episode, unspecified; I25.10 Atherosclerotic heart disease of native coronary artery without angina pectoris; J44.9 Chronic obstructive pulmonary disease, unspecified; F17.200 Nicotine dependence, unspecified, uncomplicated; M19.90 Unspecified osteoarthritis, unspecified site; Z79.899 Other long term (current) drug therapy; Z87.891 Personal history of nicotine dependence; Z90.49 Acquired absence of other specified parts of digestive tract; Z79.82 Long term (current) use of aspirin; Z88.1 Allergy status to other antibiotic agents; Z79.51 Long term (current) use of inhaled steroids
CPT/HCPCS: 36415; 80053; 80061; 81001; 82140; 82150; 82550; 82553; 83036; 83690; 83735; 83930; 83935; 84100; 84300; 84439; 84443; 84484; 85025; 85610; 85730; 99285; J1650; J2270; J2405; J3490; J7030

== ENCOUNTER 2020-08-17 10:13 | Inpatient (IN) | payer MEDICARE, BC ==
[2020-08-17 11:55] LABS: ABSOLUTE LYMPHOCYTES (AUTO) 0.8 10^3/uL (0.5-4.7); ABSOLUTE MONOCYTES (AUTO) 0.4 10^3/uL (0.1-1.4); ABSOLUTE NEUT (AUTO) 5.7 10^3/uL (1.7-8.2); BASOPHILS % (AUTO) 0.4 % (0-2); EOSINOPHILS % (AUTO) 0.1 % (0-6); HEMATOCRIT 36.7 % (36.0-47.0); HEMOGLOBIN 12.8 g/dL (12.0-15.5); LYMPHOCYTES % (AUTO) 12.1 % (13-45); MEAN CORPUSCULAR HEMOGLOBIN 31.2 pg (27.0-33.4); MEAN CORPUSCULAR HGB CONC 34.9 g/dL (32.0-36.0); MEAN CORPUSCULAR VOLUME 89 fl (80-97); MONOCYTES % (AUTO) 5.6 % (3-13); PLATELET COUNT 235 10^3/uL (150-450); RED BLOOD COUNT 4.11 10^6/uL (3.72-5.28); RED CELL DISTRIBUTION WIDTH 13.3 % (11.5-14.0); SEGMENTED NEUTROPHILS % (AUTO) 81.8 % (42-78); TOTAL CELLS COUNTED % (AUTO) 100 %
[2020-08-17 12:09] LABS: ALKALINE PHOSPHATASE 87 U/L (38-126); ANION GAP 8 (5-19); ASPARTATE AMINO TRANSFERASE 58 U/L (14-36); BILIRUBIN,DIRECT 0.1 mg/dL (0.0-0.4); BILIRUBIN,TOTAL 0.6 mg/dL (0.2-1.3); BLOOD UREA NITROGEN 13 mg/dL (7-20); CALCIUM 9.7 mg/dL (8.4-10.2); CARBON DIOXIDE 32 mmol/L (22-30); CHLORIDE 83 mmol/L (98-107); GLUCOSE 107 mg/dL (75-110); TOTAL PROTEIN 6.5 g/dL (6.3-8.2)
[2020-08-17 12:16] LABS: POTASSIUM 2.6 mmol/L (3.6-5.0)
[2020-08-17 12:46] LABS: APPEARANCE,URINE SLIGHTLY-CLOUDY; BILIRUBIN,URINE NEGATIVE (NEGATIVE); COLOR,URINE YELLOW; GLUCOSE, URINE NEGATIVE (NEGATIVE); KETONES,URINE NEGATIVE (NEGATIVE); LEUKOCYTE ESTERASE,URINE TRACE (NEGATIVE); NITRITE,URINE POSITIVE (NEGATIVE); PROTEIN,URINE NEGATIVE (NEGATIVE); URINE SPECIFIC GRAVITY 1.014; UROBILINOGEN,URINE NEGATIVE mg/dL (<2.0)
--- NOTE | 2020-08-17 13:04 | ER Document Report ---
ED General - General Chief Complaint: Abdominal Pain Stated Complaint: LOWER ABDOMINAL PAIN/DIAHERRA Time Seen by Provider: 08/17/20 13:03 Primary Care Provider: VEDA RYAN MD [Primary Care Provider] - Follow up as needed TRAVEL OUTSIDE OF THE [place] IN LAST 30 DAYS: No - HPI Notes: 75-year-old female presents with abdominal pain. Patient states that she has had intermittent abdominal pain on and off recently, her primary care doctor has referred her to GI and she will have scopes done in 1 month. However she reports for the past 2 days the pain has been persistent and described as "can't stand it". Is located in her lower central abdomen. No fever or vomiting. She has had diarrhea, described as "just diarrhea", she denies blood in her stool. She states she "went a bunch today" and estimates "like 20 times" yesterday. She states she has had no appetite and has not been eating or drinking anything, she is additionally concerned for dehydration. Nursing note reports urinary urgency, patient unsure about this. Reports she has had multiple bowel surge rob in the past, she had diverticulitis and had emergency surgery, she had a colostomy which has been reversed, she has also had gallbladder surgery. - Related Data Allergies/Adverse Reactions: levofloxacin [From Levaquin] Allergy (Intermediate, Verified 07/27/20 13:30) Difficulty breathing Home Medications: atovastatin, sertraline, HCTZ, metoprolol, hydrocodone Past Medical History - General Information source: Patient - Social History Smoking Status: Unknown if Ever Smoked Family History: Reviewed & Not Pertinent - Past Medical History Cardiac Medical History: Reports: Hx Coronary Artery Disease, Hx Hypertension - ON MEDICATION Denies: Hx Heart Attack Pulmonary Medical History: Reports: Hx COPD Denies: Hx Asthma, Hx Bronchitis, Hx Pneumonia Neurological Medical History: Denies: Hx Cerebrovascular Accident, Hx Seizures Renal/ Medical History: Denies: Hx Peritoneal Dialysis Musculoskeletal Medical History: Reports Hx Arthritis - back,top right foot,neck occas Psychiatric Medical History: Reports: Hx Anxiety, Hx Depression Past Surgical History: Reports: Hx Bowel Surgery, Hx Cholecystectomy. Denies: Hx Hysterectomy - Immunizations Hx Diphtheria, Pertussis, Tetanus Vaccination: No Hx Pneumococcal Vaccination: 09/30/14 Review of Systems - Review of Systems Constitutional: denies: Fever EENT: No symptoms reported Cardiovascular: denies: Chest pain Respiratory: denies: Short of breath Gastrointestinal: See HPI Genitourinary: See HPI Female Genitourinary: No symptoms reported Musculoskeletal: No symptoms reported Skin: No symptoms reported Hematologic/Lymphatic: No symptoms reported Neurological/Psychological: No symptoms reported Physical Exam - Vital signs Vitals: Temp Pulse Resp BP Pulse Ox 97.5 F 80 18 155/86 H 100 08/17/20 10:23 08/17/20 10:23 08/17/20 10:23 08/17/20 10:23 08/17/20 10:23 - General General appearance: Alert In distress: None - HEENT Head: Normocephalic, Atraumatic Eyes: No: Scleral icterus Extraocular movements intact: Yes Pupils: PERRL - Respiratory Breath sounds: Normal - Cardiovascular Rhythm: Regular Heart sounds: Normal auscultation Normal capillary refill: Yes - Abdominal Distension: No distension Bowel sounds: Normal Tenderness: Nontender - Extremities General upper extremity: Normal ROM General lower extremity: Normal ROM - Neurological Neuro grossly intact: Yes Cognition: Normal Orientation: AAOx4 - Psychological Associated symptoms: Normal affect - Skin Skin Temperature: Warm Course - Re-evaluation Re-evalutation: 75-year-old female with lower abdominal pain x2 days, associated diarrhea, no vomiting. On exam she is alert and in no apparent distress, her abdomen is soft and nondistended, she has positive bowel sounds and no focal areas of tenderness, she overall tolerates exam very well. Possible she may have viral illness versus colitis, however given her significant abdominal surgery history will obtain CT to rule out obstruction or any other significant infectious findings. She is afebrile and hemodynamically stable. Patient had labs done through the triage process, she has hyponatremia and hypokalemia. I reviewed her previous values, appears to have chronic hyponatremia and there is mention of SIADH in her chart, will provide normal saline, also could be additionally low due to her poor p.o. intake. Hypokalemia, has been low in the past as well, will provide oral and IV replacement, no EKG changes. Additionally appears to have a UTI, will provide Rocephin and send for culture. No leukocytosis or acute anemia present. Will trial morphine and Zofran for symptoms, trial Bentyl once CT is obtained. 08/17/20 16:45 CT abdomen has resulted, per radiology there is no obstruction or other acute process in the abdomen 08/17/20 16:56 Into check on patient, she still reports lower abdominal pain and continued diarrhea, will try dose of loperamide 08/17/20 19:49 It again to reassess patient, she reports that she still does not feel well and is refusing to go home, wants to be admitted 08/17/20 19:[address] Ryan for admission - Vital Signs Vital signs: Temp Pulse Resp BP Pulse Ox 97.5 F 80 22 H 123/72 97 08/17/20 10:23 08/17/20 10:23 08/17/20 19:01 08/17/20 19:01 08/17/20 19:01 - Laboratory Result Diagrams: 08/17/20 11:34 08/17/20 11:34 Laboratory results interpreted by me: 08/17/20 08/17/20 08/17/20 11:34 11:34 11:34 Lymph % (Auto) 12.1 L Seg Neutrophils % 81.8 H Sodium 123.3 L Potassium 2.6 L* Chloride 83 L Carbon Dioxide 32 H AST 58 H ALT 42 H Urine Nitrite POSITIVE H Ur Leukocyte Esterase TRACE H - Diagnostic Test Radiology reviewed: Image reviewed, Reports reviewed - EKG Interpretation by Me Additional EKG results interpreted by me: EKG is interpreted by me. Sinus rhythm, rate 81. Narrow QRS, QTC 479. Nonspecific ST changes. No STEMI. Discharge - Discharge Clinical Impression: Bacterial UTI, Hypokalemia Diarrhea Qualifiers: Diarrhea type: unspecified type Qualified Code(s): R19.7 - Diarrhea, unspecified Disposition: ADMITTED INPATIENT Admitting Provider: Carmella Unit Admitted: Medical Floor Referrals: VEDA RYAN MD [Primary Care Provider] - Follow up as needed
[2020-08-17] MEDS ORDERED: CEFTRIAXONE 1 GM/D5W RTU 1 GM/50 ML RTUPB IV ONE (13:17)
[2020-08-17] MEDS ORDERED: MORPHINE SULFATE 10 MG/ML INJ IV ONE (13:17)
[2020-08-17] MEDS ORDERED: ONDANSETRON HCL INJ/PF 4 MG/2 ML SDV IV ONE (13:17)
[2020-08-17] MEDS ORDERED: POTASSIUM CHLORIDE 20 MEQ PACKET PO ONE (13:17)
[2020-08-17] MEDS ORDERED: NORMAL SALINE 1000 ML 1,000 ML IV ONE (13:19)
[2020-08-17] MEDS: POTASSI CL 20 MEQ/50 ML RIDER 20 MEQ/50 ML RTUPB IV SCH ×2 (13:54→15:41)
--- NOTE | 2020-08-17 16:41 | RADIOLOGY REPORT (SQ) ---
EXAM DESCRIPTION: CT ABD/PELVIS WITH IV ORAL IMAGES COMPLETED DATE/TIME: 08/17/2020 4:10 pm REASON FOR STUDY: lower abd pain, hx multiple surgieries, eval SBO COMPARISON: 11/05/2019 TECHNIQUE: CT scan of the abdomen and pelvis performed using helical scanning technique with dynamic intravenous contrast injection. With oral contrast. Images reviewed with lung, soft tissue, and bon e windows. Reconstructed coronal and sagittal MPR images reviewed. Delayed images for evaluation of t he urinary system also acquired. All images stored on PACS. All CT scanners at this facility use dose modulation, iterative reconstruction, and/or weight based d osing when appropriate to reduce radiation dose to as low as reasonably achievable (ALARA). [facility]: Dose Right [facility]: CareDose [facility]: Dose Right [facility]: Teradose 4D [facility]: [employer] CONTRAST TYPE AND DOSE: contrast/concentration: Isovue 350.00 mmol/ml; Total Contrast Delivered: 47. 0 ml; Total Saline Delivered: 46.8 ml RENAL FUNCTION: GFR > 60. RADIATION DOSE: CT Rad equipment meets quality standard of care and radiation dose reduction techniq ues were employed. CTDIvol: 4.8 mGy. DLP: 434 mGy-cm.. LIMITATIONS: None. FINDINGS: LOWER CHEST: No significant findings. No nodules or infiltrates. LIVER: Normal size. No masses. No dilated ducts. SPLEEN: Normal size. No focal lesions. PANCREAS: No masses. No significant calcifications. No adjacent inflammation or peripancreatic fluid collections. Pancreatic duct not dilated. GALLBLADDER: Surgically absent. ADRENAL GLANDS: No significant masses or asymmetry. RIGHT KIDNEY AND URETER: No solid masses. No significant calcifications. No hydronephrosis or hyd roureter. LEFT KIDNEY AND URETER: No solid masses. No significant calcifications. No hydronephrosis or hydr oureter. AORTA AND VESSELS: No aneurysm. No dissection. Renal arteries, SMA, celiac without stenosis. RETROPERITONEUM: No retroperitoneal adenopathy, hemorrhage or masses. BOWEL AND PERITONEAL CAVITY: No masses or inflammatory changes. No free fluid or peritoneal masses. Contrast in the rectum. APPENDIX: Surgically absent. PELVIS: No mass. No free fluid. Normal bladder. ABDOMINAL WALL: No masses. No hernias. BONES: No significant or acute findings. OTHER: No other significant finding. IMPRESSION: No evidence for small bowel obstruction. No other acute process. TECHNICAL DOCUMENTATION: JOB ID: [id number] Quality ID # [id number]: Final reports with documentation of one or more dose reduction techniques (e.g., Au tomated exposure control, adjustment of the mA and/or kV according to patient size, use of iterative reconstruction technique) 2010 [employer]- All Rights Reserved Reading location - IP/workstation name: [email or web address]
[2020-08-17] MEDS ORDERED: LOPERAMIDE HCL 2 MG CAPSULE PO ONE (16:55)
--- NOTE | 2020-08-17 19:29 | EKG REPORT ---
SEVERITY:- ABNORMAL ECG - SINUS RHYTHM BORDERLINE RIGHT AXIS DEVIATION CONSIDER LEFT VENTRICULAR HYPERTROPHY NONSPECIFIC T ABNORMALITIES, INFERIOR LEADS : Confirmed by: Moni Wiseman MD 17-Aug-2020 19:28:31
[2020-08-17 23:04] LABS: PROTHROMBIN TIME 13.4 SEC (11.4-15.4)
[2020-08-17 23:11] LABS: AMYLASE < 30 U/L (30-110); PHOSPHORUS 2.2 mg/dL (2.5-4.5)
[2020-08-17 23:26] LABS: FREE T4 (FREE THYROXINE) 1.27 ng/dL (0.78-2.19)
[2020-08-17] MEDS: ENOXAPARIN SODIUM INJ 40 MG/0.4 ML DISP.SYRIN SUBCUT SCH (23:38)
[2020-08-17 23:40] LABS: THYROID STIMULATING HORMONE 2.67 uIU/mL (0.47-4.68)
[2020-08-18] MEDS ORDERED: ONDANSETRON HCL INJ/PF 4 MG/2 ML SDV IV PRN (00:33)
[2020-08-18] MEDS: POTASSI CL 20 MEQ/NS 1L 1,000 ML IV PRN (00:45)
[2020-08-18] MEDS: HYDROMORPHONE HCL INJ/PF 2 MG/ML AMPULE IV PRN ×4 (00:56→19:54)
[2020-08-18 07:36] LABS: ABSOLUTE LYMPHOCYTES (AUTO) 1.8 10^3/uL (0.5-4.7); ABSOLUTE MONOCYTES (AUTO) 0.5 10^3/uL (0.1-1.4); ABSOLUTE NEUT (AUTO) 5.9 10^3/uL (1.7-8.2); BASOPHILS % (AUTO) 0.5 % (0-2); EOSINOPHILS % (AUTO) 0.6 % (0-6); HEMATOCRIT 36.3 % (36.0-47.0); HEMOGLOBIN 12.7 g/dL (12.0-15.5); LYMPHOCYTES % (AUTO) 21.5 % (13-45); MEAN CORPUSCULAR HEMOGLOBIN 31.6 pg (27.0-33.4); MEAN CORPUSCULAR VOLUME 90 fl (80-97); MONOCYTES % (AUTO) 6.1 % (3-13); PLATELET COUNT 226 10^3/uL (150-450); RED BLOOD COUNT 4.03 10^6/uL (3.72-5.28); RED CELL DISTRIBUTION WIDTH 13.4 % (11.5-14.0); SEGMENTED NEUTROPHILS % (AUTO) 71.3 % (42-78); TOTAL CELLS COUNTED % (AUTO) 100 %; WHITE BLOOD COUNT 8.3 10^3/uL (4.0-10.5)
[2020-08-18 07:56] LABS: ALKALINE PHOSPHATASE 96 U/L (38-126); ANION GAP 9 (5-19); ASPARTATE AMINO TRANSFERASE 70 U/L (14-36); BILIRUBIN,DIRECT 0.2 mg/dL (0.0-0.4); BILIRUBIN,TOTAL 0.6 mg/dL (0.2-1.3); BLOOD UREA NITROGEN 10 mg/dL (7-20); CALCIUM 9.4 mg/dL (8.4-10.2); CARBON DIOXIDE 27 mmol/L (22-30); CHLORIDE 89 mmol/L (98-107); CHOLESTEROL 181.93 mg/dL (0-200); GLUCOSE 81 mg/dL (75-110); POTASSIUM 3.2 mmol/L (3.6-5.0); TOTAL PROTEIN 6.5 g/dL (6.3-8.2); TRIGLYCERIDES 146 mg/dL (<150)
[2020-08-18 08:06] LABS: DIRECT LDL 74 mg/dL (<100)
[2020-08-18] MEDS: POTASSI CL 20 MEQ/50 ML RIDER 20 MEQ/50 ML RTUPB IV SCH ×2 (09:04→13:10)
[2020-08-18] MEDS: ENOXAPARIN SODIUM INJ 40 MG/0.4 ML DISP.SYRIN SUBCUT SCH (11:37)
[2020-08-18 17:58] LABS: ALBUMIN 3.6 g/dL (3.5-5.0); ALKALINE PHOSPHATASE 91 U/L (38-126); ANION GAP 8 (5-19); ASPARTATE AMINO TRANSFERASE 58 U/L (14-36); BILIRUBIN,DIRECT 0.2 mg/dL (0.0-0.4); BILIRUBIN,TOTAL 0.4 mg/dL (0.2-1.3); BLOOD UREA NITROGEN 17 mg/dL (7-20); CALCIUM 9.5 mg/dL (8.4-10.2); CARBON DIOXIDE 26 mmol/L (22-30); CHLORIDE 93 mmol/L (98-107); GLUCOSE 91 mg/dL (75-110); TOTAL PROTEIN 6.1 g/dL (6.3-8.2)
[2020-08-18] MEDS ORDERED: POTASSIUM CHLORIDE 20 MEQ/50 ML RTU IV ONE (18:00)
--- NOTE | 2020-08-18 21:01 | PDOC H&P ---
History of Present Illness Admission Date/PCP: 08/17/20 19:59 VEDA RYAN MD History of Present Illness: MAYURI BAILEY is a 75 year old female, She came to the emergency room for e valuation of abdominal pain, diarrhea, she stated that she has persistent diarrhea in the last 2 days with lower abdominal pain there was no passage of bloody stool there was no vomiting, she denies any exposure to SARS-CoV-2 infection, there is no fever there is no chills there is no cough she has underlining COPD with baseline shortness of breath. In the emergency room she had a CAT scan of the abdomen and pelvis with IV contrast, the liver was normal size, the spleen was normal size, there was no aneurysm the appendix is surgically absent, it was essentially a negative CAT scan she was also found to have hypokalemia, hyponatremia. In the emergency room she could not be discharge home because she was very symptomatic Past Medical History Cardiac Medical History: Reports: Coronary Artery Disease, Hypertension - ON MEDICATION Pulmonary Medical History: Reports: Chronic Obstructive Pulmonary Disease (COPD) Musculoskeltal Medical History: Reports: Arthritis - back,top right foot,neck occas Psychiatric Medical History: Reports: Depression Past Surgical History Past Surgical History: Reports: Cholecystectomy Denies: Hysterectomy Social History Smoking Status: Current Every Day Smoker Frequency of Alcohol Use: None Hx Recreational Drug Use: No Drugs: None Hx Prescription Drug Abuse: No Family History Family History: Reviewed & Not Pertinent Parental Family History Reviewed: Yes Children Family History Reviewed: Yes Sibling(s) Family History Reviewed.: Yes Medication/Allergy Home Medications: Hydrocodone/Acetaminophen [Hydrocodone-Acetamin 10-325 mg] 1 tab PO Q6HP PRN 11/04/17 Isosorbide Mononitrate [Isosorbide Mononitrate ER] 30 mg PO DAILY 11/04/17 Albuterol Sulfate [Proair HFA Inhalation Aerosol 8.5 gm MDI] 2 puff IH Q4HP PRN 07/27/20 Aspirin [Adult Low Dose Aspirin EC] 81 mg PO QHS 07/27/20 Fluticasone/Salmeterol [Advair 500-50 Diskus 14 Dose/Diskus] 1 puff IH Q12 07/27/20 Montelukast Sodium [Singulair 10 mg Tablet] 10 mg PO DAILY 07/27/20 Olmesartan/Amlodipin/Hcthiazid [Tribenzor 40-10-25 mg Tablet] 1 tab PO DAILY 07/27/20 Sertraline HCl [Zoloft 50 mg Tablet] 50 mg PO DAILY 07/27/20 Atorvastatin Calcium [Lipitor 20 mg Tablet] 20 mg PO QHS #90 tablet 07/28/20 Metoprolol Succinate [Toprol Xl] 200 mg PO DAILY 08/18/20 Allergies/Adverse Reactions: levofloxacin [From Levaquin] Allergy (Intermediate, Verified 07/27/20 13:30) Difficulty breathing Review of Systems Constitutional: PRESENT: weakness Eyes: ABSENT: visual disturbances Ears: ABSENT: hearing changes Cardiovascular: ABSENT: chest pain, dyspnea on exertion, edema, orthropnea, palpitations Respiratory: ABSENT: cough, hemoptysis Gastrointestinal: PRESENT: abdominal pain, diarrhea Genitourinary: ABSENT: dysuria, hematuria Musculoskeletal: ABSENT: joint swelling Integumentary: ABSENT: rash, wounds Neurological: ABSENT: abnormal gait, abnormal speech, confusion, dizziness, focal weakness, syncope Psychiatric: ABSENT: anxiety, depression, homidical ideation, suicidal ideation Endocrine: ABSENT: cold intolerance, heat intolerance, menstrual abnormalities, polydipsia, polyuria Hematologic/Lymphatic: ABSENT: easy bleeding, easy bruising, lymphadenopathy Physical Exam Vital Signs: Temp Pulse Resp BP Pulse Ox 98.1 F 61 15 131/71 H 98 08/18/20 13:50 08/18/20 13:50 08/18/20 13:50 08/18/20 13:50 08/18/20 13:50 Intake & Output 08/17/20 08/18/20 08/19/20 06:59 06:59 06:59 Intake Total 1145 50 Balance 1145 50 Weight 41.5 kg General appearance: PRESENT: no acute distress, thin Head exam: PRESENT: atraumatic, normocephalic Eye exam: PRESENT: conjunctiva pink, EOMI, PERRLA Ear exam: PRESENT: normal external ear exam Mouth exam: PRESENT: moist, tongue midline Neck exam: PRESENT: full ROM Respiratory exam: PRESENT: clear to auscultation eze Cardiovascular exam: PRESENT: RRR, +S1, +S2 Pulses: PRESENT: normal dorsalis pedis pul, +2 pedal pulses bilateral Vascular exam: PRESENT: normal capillary refill GI/Abdominal exam: PRESENT: diminished bowel sounds, normal bowel sounds, soft, tenderness Rectal exam: PRESENT: deferred Neurological exam: PRESENT: alert, CN II-XII grossly intact Psychiatric exam: PRESENT: appropriate affect, normal mood Skin exam: PRESENT: dry, intact, warm. ABSENT: cyanosis, rash Results Laboratory Results: 08/18/20 06:43 08/18/20 17:18 08/17/20 08/17/20 08/17/20 22:48 22:48 22:48 WBC RBC Hgb Hct MCV MCH MCHC RDW Plt Count Seg Neutrophils % Sodium Potassium Chloride Carbon Dioxide Anion Gap BUN Creatinine Est GFR ( Amer) Glucose Calcium Phosphorus 2.2 L Magnesium 1.3 L Total Bilirubin AST Alkaline Phosphatase Ammonia < 8.7 L Total Protein Albumin Triglycerides Cholesterol LDL Cholesterol Direct VLDL Cholesterol HDL Cholesterol Amylase < 30 L Lipase 238.0 TSH 2.67 Free T4 1.27 08/18/20 08/18/20 08/18/20 06:43 06:43 17:18 WBC 8.3 RBC 4.03 Hgb 12.7 Hct 36.3 MCV 90 MCH 31.6 MCHC 35.0 RDW 13.4 Plt Count 226 Seg Neutrophils % 71.3 Sodium 125.1 L 126.8 L Potassium 3.2 L 4.0 Chloride 89 L 93 L Carbon Dioxide 27 26 Anion Gap 9 8 BUN 10 17 Creatinine 0.67 0.78 Est GFR ( Amer) > 60 > 60 Glucose 81 91 Calcium 9.4 9.5 Phosphorus Magnesium Total Bilirubin 0.6 0.4 AST 70 H 58 H Alkaline Phosphatase 96 91 Ammonia Total Protein 6.5 6.1 L Albumin 4.0 3.6 Triglycerides 146 Cholesterol 181.93 LDL Cholesterol Direct 74 VLDL Cholesterol 29.0 HDL Cholesterol 99 Amylase Lipase TSH Free T4 Impressions: Abdomen/Pelvis CT 08/17/20 13:19 IMPRESSION: No evidence for small bowel obstruction. No other acute process. Assessment & Plan - Diagnosis (1) Acute gastroenteritis Is this a current diagnosis for this admission?: Yes Plan: She has acute gastroenteritis with hyponatremia, hypokalemia, hydrate with IV fluid, To replenish volume, and electrolyte (2) Hypokalemia Is this a current diagnosis for this admission?: Yes (3) Hyponatremia Is this a current diagnosis for this admission?: Yes - Time Time Spent: 50 to 70 Minutes Medications reviewed and adjusted accordingly: Yes Anticipated Discharge Disposition: Home, Self Care Anticipated Discharge Timeframe: within 72 hours - Inpatient Certification Based on my medical assessment, after consideration of the patient's comorbidities, presenting symptoms, or acuity I expect that the services needed warrant INPATIENT care.: Yes I certify that my determination is in accordance with my understanding of Medicare's requirements for reasonable and necessary INPATIENT services [42 CFR 412.3e].: Yes
--- NOTE | 2020-08-18 21:05 | PDOC PROGRESS REPORT ---
Subjective Date:: 08/18/20 Subjective:: Patient alert oriented, she still has diarrhea but improved Reason For Visit: ABDOMINAL PAIN,HYPOKALEMIA Physical Exam Vital Signs: Temp Pulse Resp BP Pulse Ox 98.1 F 61 15 131/71 H 98 08/18/20 13:50 08/18/20 13:50 08/18/20 13:50 08/18/20 13:50 08/18/20 13:50 Intake & Output 08/17/20 08/18/20 08/19/20 06:59 06:59 06:59 Intake Total 1145 50 Balance 1145 50 Weight 41.5 kg General appearance: PRESENT: no acute distress Eye exam: PRESENT: PERRLA Respiratory exam: PRESENT: clear to auscultation eze Cardiovascular exam: PRESENT: +S1, +S2 GI/Abdominal exam: PRESENT: soft Neurological exam: PRESENT: alert Results Laboratory Results: 08/18/20 06:43 08/18/20 17:18 08/17/20 08/17/20 08/17/20 22:48 22:48 22:48 WBC RBC Hgb Hct MCV MCH MCHC RDW Plt Count Seg Neutrophils % Sodium Potassium Chloride Carbon Dioxide Anion Gap BUN Creatinine Est GFR ( Amer) Glucose Calcium Phosphorus 2.2 L Magnesium 1.3 L Total Bilirubin AST Alkaline Phosphatase Ammonia < 8.7 L Total Protein Albumin Triglycerides Cholesterol LDL Cholesterol Direct VLDL Cholesterol HDL Cholesterol Amylase < 30 L Lipase 238.0 TSH 2.67 Free T4 1.27 08/18/20 08/18/20 08/18/20 06:43 06:43 17:18 WBC 8.3 RBC 4.03 Hgb 12.7 Hct 36.3 MCV 90 MCH 31.6 MCHC 35.0 RDW 13.4 Plt Count 226 Seg Neutrophils % 71.3 Sodium 125.1 L 126.8 L Potassium 3.2 L 4.0 Chloride 89 L 93 L Carbon Dioxide 27 26 Anion Gap 9 8 BUN 10 17 Creatinine 0.67 0.78 Est GFR ( Amer) > 60 > 60 Glucose 81 91 Calcium 9.4 9.5 Phosphorus Magnesium Total Bilirubin 0.6 0.4 AST 70 H 58 H Alkaline Phosphatase 96 91 Ammonia Total Protein 6.5 6.1 L Albumin 4.0 3.6 Triglycerides 146 Cholesterol 181.93 LDL Cholesterol Direct 74 VLDL Cholesterol 29.0 HDL Cholesterol 99 Amylase Lipase TSH Free T4 Impressions: Abdomen/Pelvis CT 08/17/20 13:19 IMPRESSION: No evidence for small bowel obstruction. No other acute process. Assessment & Plan - Diagnosis (1) Acute gastroenteritis Is this a current diagnosis for this admission?: Yes Plan: Continue IV fluid therapy (2) Hypokalemia Is this a current diagnosis for this admission?: Yes Plan: Replenish potassium (3) Hyponatremia Is this a current diagnosis for this admission?: Yes Plan: Replenish sodium - Time Time Spent with patient: Less than 15 minutes Level of Care: MEDICAL Medications reviewed and adjusted accordingly: Yes Anticipated discharge: Home - Inpatient Certification Based on my medical assessment, after consideration of the patient's comorbidities, presenting symptoms, or acuity I expect that the services needed warrant INPATIENT care.: Yes I certify that my determination is in accordance with my understanding of Medicare's requirements for reasonable and necessary INPATIENT services [42 CFR 412.3e].: Yes
[2020-08-18 22:46] LABS: AMORPHOUS SEDIMENT,URINE TRACE /HPF; APPEARANCE,URINE TURBID; BILIRUBIN,URINE NEGATIVE (NEGATIVE); COLOR,URINE YELLOW; GLUCOSE, URINE NEGATIVE (NEGATIVE); KETONES,URINE NEGATIVE (NEGATIVE); PROTEIN,URINE NEGATIVE (NEGATIVE); URINE SPECIFIC GRAVITY 1.025; UROBILINOGEN,URINE NEGATIVE mg/dL (<2.0)
[2020-08-18 22:56] LABS: URINE AMPHETAMINES SCREEN NEGATIVE; URINE BARBITURATES SCREEN NEGATIVE; URINE BENZODIAZEPINES SCREEN NEGATIVE; URINE COCAINE SCREEN NEGATIVE; URINE MARIJUANA (THC) SCREEN NEGATIVE; URINE METHADONE SCREEN NEGATIVE; URINE PHENCYCLIDINE SCREEN NEGATIVE
[2020-08-19] MEDS: HYDROMORPHONE HCL INJ/PF 2 MG/ML AMPULE IV PRN ×2 (03:06→09:27)
[2020-08-19] MEDS ORDERED: ALBUTEROL SULFATE 0.083% NEB 2.5 MG/3 ML AMPUL NEB PRN (05:34)
[2020-08-19] MEDS: POTASSI CL 20 MEQ/NS 1L 1,000 ML IV PRN (07:44)
[2020-08-19] MEDS ORDERED: INFLUENZA QUAD (6MOS+) 2020-21 VAC 0.5 ML SYR IM ONE (08:00)
[2020-08-19 08:21] LABS: ABSOLUTE EOSINOPHILS # (AUTO) 0.1 10^3/uL (0.0-0.6); ABSOLUTE LYMPHOCYTES (AUTO) 2.2 10^3/uL (0.5-4.7); ABSOLUTE MONOCYTES (AUTO) 0.5 10^3/uL (0.1-1.4); ABSOLUTE NEUT (AUTO) 5.1 10^3/uL (1.7-8.2); BASOPHILS % (AUTO) 0.4 % (0-2); EOSINOPHILS % (AUTO) 1.2 % (0-6); HEMATOCRIT 35.6 % (36.0-47.0); HEMOGLOBIN 12.4 g/dL (12.0-15.5); LYMPHOCYTES % (AUTO) 27.9 % (13-45); MEAN CORPUSCULAR HEMOGLOBIN 31.5 pg (27.0-33.4); MEAN CORPUSCULAR HGB CONC 34.8 g/dL (32.0-36.0); MEAN CORPUSCULAR VOLUME 90 fl (80-97); MONOCYTES % (AUTO) 6.3 % (3-13); PLATELET COUNT 223 10^3/uL (150-450); RED BLOOD COUNT 3.94 10^6/uL (3.72-5.28); RED CELL DISTRIBUTION WIDTH 13.4 % (11.5-14.0); SEGMENTED NEUTROPHILS % (AUTO) 64.2 % (42-78); TOTAL CELLS COUNTED % (AUTO) 100 %; WHITE BLOOD COUNT 7.9 10^3/uL (4.0-10.5)
[2020-08-19] MEDS ORDERED: METOPROLOL SUCCINATE 50 MG TAB.SR.24H PO SCH ×2 (09:00→10:00)
[2020-08-19] MEDS: ENOXAPARIN SODIUM INJ 40 MG/0.4 ML DISP.SYRIN SUBCUT SCH (09:28)
[2020-08-19] MEDS: POTASSI CL 20 MEQ/50 ML RIDER 20 MEQ/50 ML RTUPB IV SCH (11:08)
[2020-08-19 13:00] LABS: C DIFFICILE GDH NEGATIVE (NEGATIVE)
[2020-08-19 13:13] VITALS: BP 128/61
--- NOTE | 2020-08-19 19:43 | PDOC DISCHARGE SUMMARY ---
Impression - Admit/DC Date/PCP Admission Date/Primary Care Provider: 08/17/20 19:59 VEDA RYAN MD Discharge Date: 08/19/20 - Discharge Diagnosis (1) Acute gastroenteritis Is this a current diagnosis for this admission?: Yes (2) Hypokalemia Is this a current diagnosis for this admission?: Yes (3) Hyponatremia Is this a current diagnosis for this admission?: Yes - Additional Information Discharge Diet: Regular Discharge Activity: Balance Activity w/Rest, No Lifting Over 10 Pounds Referrals: VEDA RYAN MD [Primary Care Provider] - Follow up as needed Home Medications: Hydrocodone/Acetaminophen [Hydrocodone-Acetamin 10-325 mg] 1 tab PO Q6HP PRN 11/04/17 Isosorbide Mononitrate [Isosorbide Mononitrate ER] 30 mg PO DAILY 11/04/17 Albuterol Sulfate [Proair HFA Inhalation Aerosol 8.5 gm MDI] 2 puff IH Q4HP PRN 07/27/20 Aspirin [Adult Low Dose Aspirin EC] 81 mg PO QHS 07/27/20 Fluticasone/Salmeterol [Advair 500-50 Diskus 14 Dose/Diskus] 1 puff IH Q12 07/27/20 Montelukast Sodium [Singulair 10 mg Tablet] 10 mg PO DAILY 07/27/20 Olmesartan/Amlodipin/Hcthiazid [Tribenzor 40-10-25 mg Tablet] 1 tab PO DAILY 07/27/20 Sertraline HCl [Zoloft 50 mg Tablet] 50 mg PO DAILY 07/27/20 Atorvastatin Calcium [Lipitor 20 mg Tablet] 20 mg PO QHS #90 tablet 07/28/20 Metoprolol Succinate [Toprol Xl] 200 mg PO DAILY 08/18/20 History of Present Illiness History of Present Illness: MAYURI BAILEY is a 75 year old female, She came to the emergency room for evaluation of abdominal pain, diarrhea, she stated that she has persistent diarrhea in the last 2 days with lower abdominal pain there was no passage of bloody stool there was no vomiting, she denies any exposure to SARS-CoV-2 infection, there is no fever there is no chills there is no cough she has underlining COPD with baseline shortness of breath. In the emergency room she had a CAT scan of the abdomen and pelvis with IV contrast, the liver was normal size, the spleen was normal size, there was no aneurysm the appendix is surgically absent, it was essentially a negative CAT scan she was also found to have hypokalemia, hyponatremia. In the emergency room she could not be discha rge home because she was very symptomatic Hospital Course Hospital Course: Patient was admitted for the management of abdominal pain associated with diarrhea, she had a CAT scan of the abdomen pelvis, negative for any acute pathology. There was associated hyponatremia, hypokalemia, the electrolyte abnormalities was corrected, the stool study was negative for C. difficile, there was no white blood cell seen in the stool which negates infection.Patient improved with treatment, she wants to go home today she be discharged home Physical Exam Vital Signs: Temp Pulse Resp BP Pulse Ox 97.6 F 64 18 128/61 H 97 08/19/20 14:03 08/19/20 14:03 08/19/20 14:03 08/19/20 14:03 08/19/20 14:03 Intake & Output 08/18/20 08/19/20 08/20/20 06:59 06:59 06:59 Intake Total 1145 0 210 Output Total 400 Balance 1145 0 -190 Weight 41.5 kg 41.5 kg General appearance: PRESENT: no acute distress Eye exam: PRESENT: PERRLA Respiratory exam: PRESENT: clear to auscultation eze Cardiovascular exam: PRESENT: +S1, +S2 GI/Abdominal exam: PRESENT: soft Neurological exam: PRESENT: alert, CN II-XII grossly intact Results Laboratory Results: WBC 7.9 10^3/uL (4.0-10.5) 08/19/20 07:47 RBC 3.94 10^6/uL (3.72-5.28) 08/19/20 07:47 Hgb 12.4 g/dL (12.0-15.5) 08/19/20 07:47 Hct 35.6 % (36.0-47.0) L 08/19/20 07:47 MCV 90 fl (80-97) 08/19/20 07:47 MCH 31.5 pg (27.0-33.4) 08/19/20 07:47 MCHC 34.8 g/dL (32.0-36.0) 08/19/20 07:47 RDW 13.4 % (11.5-14.0) 08/19/20 07:47 Plt Count 223 10^3/uL (150-450) 08/19/20 07:47 Lymph % (Auto) 27.9 % (13-45) 08/19/20 07:47 [place] % (Auto) 6.3 % (3-13) 08/19/20 07:47 Eos % (Auto) 1.2 % (0-6) 08/19/20 07:47 Baso % (Auto) 0.4 % (0-2) 08/19/20 07:47 Absolute Neuts (auto) 5.1 10^3/uL (1.7-8.2) 08/19/20 07:47 Absolute Lymphs (auto) 2.2 10^3/uL (0.5-4.7) 08/19/20 07:47 Absolute Monos (auto) 0.5 10^3/uL (0.1-1.4) 08/19/20 07:47 Absolute Eos (auto) 0.1 10^3/uL (0.0-0.6) 08/19/20 07:47 Absolute Basos (auto) 0.0 10^3/uL (0.0-0.2) 08/19/20 07:47 Seg Neutrophils % 64.2 % (42-78) 08/19/20 07:47 PT 13.4 SEC (11.4-15.4) 08/17/20 22:48 INR 1.00 08/17/20 22:48 Sodium 126.8 mmol/L (137-145) L 08/18/20 17:18 Potassium 4.0 mmol/L (3.6-5.0) 08/18/20 17:18 Chloride 93 mmol/L (98-107) L 08/18/20 17:18 Carbon Dioxide 26 mmol/L (22-30) 08/18/20 17:18 Anion Gap 8 (5-19) 08/18/20 17:18 BUN 17 mg/dL (7-20) 08/18/20 17:18 Creatinine 0.78 mg/dL (0.52-1.25) 08/18/20 17:18 Est GFR ( Amer) > 60 (>60) 08/18/20 17:18 Est GFR (MDRD) Non-Af > 60 (>60) 08/18/20 17:18 Glucose 91 mg/dL (75-110) 08/18/20 17:18 Hemoglobin A1c % 4.9 % (4.7-6.0) 08/18/20 06:43 Calcium 9.5 mg/dL (8.4-10.2) 08/18/20 17:18 Phosphorus 2.2 mg/dL (2.5-4.5) L 08/17/20 22:48 Magnesium 1.3 mg/dL (1.6-2.3) L 08/17/20 22:48 Total Bilirubin 0.4 mg/dL (0.2-1.3) 08/18/20 17:18 Direct Bilirubin 0.2 mg/dL (0.0-0.4) 08/18/20 17:18 Neonat Total Bilirubin Not Reportable 08/18/20 17:18 Neonat Direct Bilirubin Not Reportable 08/18/20 17:18 Neonat Indirect Bili Not Reportable 08/18/20 17:18 AST 58 U/L (14-36) H 08/18/20 17:18 ALT 48 U/L (<35) H 08/18/20 17:18 Alkaline Phosphatase 91 U/L (38-126) 08/18/20 17:18 Ammonia < 8.7 umol/L (9-33) L 08/17/20 22:48 Total Protein 6.1 g/dL (6.3-8.2) L 08/18/20 17:18 Albumin 3.6 g/dL (3.5-5.0) 08/18/20 17:18 Triglycerides 146 mg/dL (<150) 08/18/20 06:43 Cholesterol 181.93 mg/dL (0-200) 08/18/20 06:43 LDL Cholesterol Direct 74 mg/dL (<100) 08/18/20 06:43 VLDL Cholesterol 29.0 mg/dL (10-31) 08/18/20 06:43 HDL Cholesterol 99 mg/dL (>40) 08/18/20 06:43 Amylase < 30 U/L (30-110) L 08/17/20 22:48 Lipase 238.0 U/L (23-300) 08/17/20 22:48 TSH 2.67 uIU/mL (0.47-4.68) 08/17/20 22:48 Free T4 1.27 ng/dL (0.78-2.19) 08/17/20 22:48 Urine Color YELLOW 08/18/20 21:17 Urine Appearance TURBID 08/18/20 21:17 Urine pH 6.0 (5.0-9.0) 08/18/20 21:17 Ur Specific [place] 1.025 08/18/20 21:17 Urine Protein NEGATIVE mg/dL (NEGATIVE) 08/18/20 21:17 Urine Glucose (UA) NEGATIVE mg/dL (NEGATIVE) 08/18/20 21:17 Urine Ketones NEGATIVE mg/dL (NEGATIVE) 08/18/20 21:17 Urine Blood NEGATIVE (NEGATIVE) 08/18/20 21:17 Urine Nitrite POSITIVE (NEGATIVE) H 08/17/20 11:34 Urine Nitrite (Reflex) NEGATIVE (NEGATIVE) 08/18/20 21:17 Urine Bilirubin NEGATIVE (NEGATIVE) 08/18/20 21:17 Urine Urobilinogen NEGATIVE mg/dL (<2.0) 08/18/20 21:17 Ur Leukocyte Esterase TRACE (NEGATIVE) H 08/17/20 11:34 Leukocyte Esterase Rfl SMALL (NEGATIVE) H 08/18/20 21:17 Urine WBC (Auto) 10 /HPF 08/17/20 11:34 Urine RBC (Auto) 2 /HPF 08/17/20 11:34 Urine Bacteria (Auto) 1+ /HPF 08/18/20 21:17 Urine WBC (Reflex) 31 /HPF 08/18/20 21:17 Squamous Epi Cells Auto 2 /HPF 08/17/20 11:34 Amorphous Sediment Auto TRACE /HPF 08/18/20 21:17 Urine Mucus (Auto) FEW /LPF 08/18/20 21:17 Urine Ascorbic Acid NEGATIVE (NEGATIVE) 08/18/20 21:17 Stool for White Cells NO WBCs SEEN 08/18/20 09:32 Stl C. Difficile GDH Ag NEGATIVE (NEGATIVE) 08/19/20 09:32 Stl C.difficile Tox A&B NEGATIVE (NEGATIVE) 08/19/20 09:32 Urine Opiates Screen UNCONFIRMED POSITIVE 08/18/20 21:17 Urine Methadone Screen NEGATIVE 08/18/20 21:17 Ur Barbiturates Screen NEGATIVE 08/18/20 21:17 Ur Phencyclidine Scrn NEGATIVE 08/18/20 21:17 Ur Amphetamines Screen NEGATIVE 08/18/20 21:17 U Benzodiazepines Scrn NEGATIVE 08/18/20 21:17 Urine Cocaine Screen NEGATIVE 08/18/20 21:17 U Marijuana (THC) Screen NEGATIVE 08/18/20 21:17 Impressions: Abdomen/Pelvis CT 08/17/20 13:19 IMPRESSION: No evidence for small bowel obstruction. No other acute process. Stroke Is this a Stroke Patient?: No Acute Heart Failure Is this a Heart Failure Patient?: No
== END 2020-08-19 15:16 | disposition home or self-care (01) | DRG 392 ==
LOC: ER 10:13 → EH 19:59 → 2N 08-18 00:23
PROVIDERS: ADMIT Internal Medicine; ATTEND Internal Medicine
DX: K52.9 Noninfective gastroenteritis and colitis, unspecified (principal); E87.1 Hypo-osmolality and hyponatremia; N39.0 Urinary tract infection, site not specified; E87.6 Hypokalemia; B96.89 Other specified bacterial agents as the cause of diseases classified elsewhere; I25.10 Atherosclerotic heart disease of native coronary artery without angina pectoris; I10 Essential (primary) hypertension; J44.9 Chronic obstructive pulmonary disease, unspecified; F41.9 Anxiety disorder, unspecified; F32.9 Major depressive disorder, single episode, unspecified; F17.200 Nicotine dependence, unspecified, uncomplicated; Z98.890 Other specified postprocedural states; Z88.1 Allergy status to other antibiotic agents; Z79.899 Other long term (current) drug therapy; Z79.891 Long term (current) use of opiate analgesic; Z79.82 Long term (current) use of aspirin; Z23 Encounter for immunization
CPT/HCPCS: 36415; 74177; 80053; 80061; 80307; 81001; 82140; 82150; 83036; 83690; 83735; 84100; 84439; 84443; 85025; 85610; 87045; 87070; 87086; 87088; 87186; 87205; 87324; 87449; 89055; 90471; 90686; 93005; 93010; 94640; 96365; 96366; 96367; 96368; 96375; 99285; G0008; J0696; J1170; J1650; J2270; J2405; J3480; J3490; J7030; J7613